=== PATIENT | female | born 1955 | race Caucasian/White ===

== ENCOUNTER 2019-05-18 12:49 | Inpatient (IN) ==
[2019-05-18] MEDS ORDERED: NS 1,000 ML IV ONE ×2 (13:46→15:19)
[2019-05-18] MEDS ORDERED: PHENERGAN IV ONE (13:47)
[2019-05-18] MEDS ORDERED: SODIUM CHLORIDE 0.9% INJ ONE (13:47)
[2019-05-18] MEDS ORDERED: DEMEROL IV ONE ×2 (14:06→15:16)
[2019-05-18 14:09] LABS: BASO# 0.02 X1000 (0.0-0.2); BASO% 0.1 % (0.0-0.8); EOS# 0.06 X1000 (0.0-0.7); EOS% 0.4 % (0.0-10.0); HEMATOCRIT 42.5 % (37.0-47.0); HEMOGLOBIN 14.8 g/dL (12.0-16.0); IMM GRAN# 0.04 X1000 (0.0-0.04); IMM GRAN% 0.3 % (0.0-0.5); LYMPH# 2.05 X1000 (1.2-3.4); LYMPH% 15.2 % (20.5-51.1); MCHC 34.8 g/dL (33-37); MCV 88.9 FL (81-99); MONO% 6.7 % (1.7-9.3); MPV 8.4 FL (7.4-10.4); NEUT# 10.43 X1000 (1.4-6.5); NEUT% 77.3 % (42.2-75.2); PLT 280 X1000 (130-400); RBC 4.78 XMIL (4.2-5.4); RDW 12.5 % (11.5-14.5)
[2019-05-18 14:51] LABS: AGAP 12; ALBUMIN 3.7 g/dL (3.5-5.0); ALKALINE PHOSPHATASE 94 U/L (32-104); BUN 8 mg/dL (8-22); CALCIUM 7.8 mg/dL (8.8-10.2); CHLORIDE 98 mmol/L (98-107); COSMO 269; CREATININE 0.8 mg/dL (0.5-0.9); ESTIMATED GFR > 60; GLUCOSE 115 mg/dL (70-104); GOT 32 U/L (10-30); GPT 29 U/L (10-36); LIPASE 487 U/L (13-60); POTASSIUM 3.5 mmol/L (3.5-5.1); SODIUM 135 mmol/L (136-145); TCO2 25 mmol/L (25-35); TOTAL PROTEIN 5.8 g/dL (6.3-8.3)
--- NOTE | 2019-05-18 15:09 | Diag Imaging Result Doc PS360 ---
EXAM: CHEST-2 VIEWS INDICATION: pain TECHNIQUE: 2 views COMPARISON: 03/07/2018 FINDINGS: The lungs are grossly clear. There is no discrete pleural fluid collection or pneumothorax. The cardiomediastinal silhouette and central vasculature are grossly unremarkable. IMPRESSION: No evidence of acute pathology by plain radiograph. Electronically signed by Sukhwinder Roland 05/18/2019 3:07 PM
--- NOTE | 2019-05-18 15:11 | Diag Imaging Result Doc PS360 ---
EXAM: ABDOMEN FLAT/UPRIGHT INDICATION: pain TECHNIQUE: 3 views COMPARISON: 11/08/2010 FINDINGS: There are unremarkable bowel gas and stool patterns. There is no obstructive bowel pattern. There is no evidence of large volume free abdominal gas. There is no evidence of organomegaly. IMPRESSION: No evidence of acute pathology by plain radiograph. Electronically signed by Sukhwinder Roland 05/18/2019 3:08 PM
[2019-05-18] MEDS ORDERED: ATIVAN IV ONE (15:30)
--- NOTE | 2019-05-18 16:28 | Diag Imaging Result Doc PS360 ---
EXAM: CT ABD/PELVIS W/IV CONT ONLY INDICATION: pain TECHNIQUE: This exam was performed using automated exposure control, adjustment of mA or kV according to patient size, and/or use of iterative reconstruction technique. COMPARISON: None. FINDINGS: There is a fair amount of peripancreatic fluid suggesting acute pancreatitis. The pancreas enhances normally. There is no evidence of pancreatic necrosis. The gallbladder is distended but there is no pericholecystic inflammatory change or wall thickening. There is no evidence of significant biliary dilatation. The liver, spleen, adrenal glands, kidneys, and urinary bladder are unremarkable. The reproductive tract is unremarkable as imaged. There is no evidence of appendicitis. No focal bowel wall thickening is appreciated. The remainder of the GI tract is grossly unremarkable. There is no evidence of acute osseous abnormality. IMPRESSION: Fair amount of peripancreatic fluid suggesting acute pancreatitis. Please correlate with laboratory studies. Electronically signed by Sukhwinder Roland 05/18/2019 4:25 PM
[2019-05-18 17:02] LABS: BILIRUBIN URINE NEGATIVE (NEGATIVE); BLOOD URINE NEGATIVE (NEGATIVE); GLUCOSE URINE NEGATIVE (NEGATIVE); KETONE URINE NEGATIVE (NEGATIVE); LEUKOCYTES URINE TRACE (NEGATIVE); NITRITE URINE NEGATIVE (NEGATIVE); PROTEIN URINE NEGATIVE (NEGATIVE); SP GRAVITY URINE 1.005; UROBILINOGEN URINE NORMAL
[2019-05-18 17:03] LABS: CLARITY CLEAR (CLEAR); COLOR YELLOW; UR AMPHETAMINES QUAL NONE DETECTED (NONE DETECT); UR BARBITUATES QUAL NONE DETECTED (NONE DETECT); UR BENZODIAZEPIN QUAL NONE DETECTED (NONE DETECT); UR CANNABINOIDS QUAL NONE DETECTED (NONE DETECT); UR COCAINE QUAL NONE DETECTED (NONE DETECT); UR METHADONE QUAL NONE DETECTED (NONE DETECT); UR METHAMPHETAMINE QUAL NONE DETECTED (NONE DETECT); UR OPIATES QUAL PRESUMPTIVE POSITIVE (NONE DETECT); UR OXYCODONE QUAL NONE DETECTED (NONE DETECT); UR PCP QUAL NONE DETECTED (NONE DETECT); UR PROPOXYPHENE QUAL NONE DETECTED (NONE DETECT); UR TCA QUAL NONE DETECTED (NONE DETECT)
[2019-05-18 17:04] LABS: URINE BACTERIA 1+ /HFP; URINE CAST NONE SEEN /LPF; URINE CRYSTAL NONE SEEN /HPF; URINE EPITHELIAL CELLS <10 /HPF (<10); URINE SOURCE CLEAN CATCH; URINE WBC <10 /HPF (<10); URINE YEAST NONE SEEN /HPF
--- NOTE | 2019-05-18 18:12 | Diag Imaging Result Doc PS360 ---
EXAM: US GB < RUQ (LIMITED) INDICATION: pancreatitis COMPARISON: None. FINDINGS: The gallbladder appears normal with no stones, wall thickening, or pericholecystic fluid. The common bile duct is normal in diameter. Sonographic Serrato's sign was reported to be positive by the needle punch machine operator helper. The liver is grossly unremarkable. Portal venous flow is hepatopetal. The pancreas is largely obscured. The pancreatic head is grossly unremarkable. Note that most of the fluid seen on the previous CT was around the tail the pancreas. The aorta is largely obscured. The IVC is unremarkable. The right kidney is grossly unremarkable. IMPRESSION: 1.Grossly normal gallbladder with no gallstones identified and no evidence of biliary dilatation. However, the needle punch machine operator helper reported a positive sonographic Serrato sign. 2.The pancreas is largely obscured. 3.Unremarkable right upper quadrant ultrasound, otherwise. Electronically signed by Sukhwinder Roland 05/18/2019 6:09 PM
--- NOTE | 2019-05-18 18:18 | HISTORY AND PHYSICAL ---
PRIMARY CARE PHYSICIAN: Dr. Jhonny Harvey. CHIEF COMPLAINT: Left lower quadrant abdominal pain with nausea, vomiting that began today. HISTORY OF PRESENTING ILLNESS: This is a 63-year-old female who presents to [facility] ER with complaints of nausea, vomiting, left lower quadrant abdominal pain. States the symptoms began this morning. She has a history of ETOH abuse. States she had been quit for about 9 months after she went to the [facility] back in December 2017 but recently about a month ago began drinking again and was very noncommittal to how much she drinks a day. She started with 2 glasses of wine then she said she also likes carmel margaritas and then she said she drinks a beer a day also but would never commit exactly how much she drinks in a day but her workup showed a white blood cell count of 13.50, an amylase of 155, lipase of 487. Her CT of the abdomen and pelvis showed a fair amount of peripancreatic fluid suggesting an acute pancreatitis so she will be admitted for further evaluation and treatment. PAST MEDICAL HISTORY: Hypertension, COPD, hypothyroidism, melanoma, bipolar, hyperlipidemia, depression and ETOH abuse. PAST SURGICAL HISTORY: Of multiple ankle surgeries. FAMILY HISTORY: Reviewed and noncontributory. SOCIAL HISTORY: She currently lives with family. Smokes a half a pack of cigarettes a day, again was noncommittal on exactly how much she drinks alcohol but said she had been sober for about 9 months, has had a history of ETOH abuse, was in the [facility] in December 2017 but admitted to drinking 2 glasses of wine a day, a carmel Genevieve and 1 beer and denied any illicit drug use. ALLERGIES: Codeine, sulfa and morphine. HOME MEDICATIONS: She takes Prozac 40 mg p.o. daily we will hold at this time. LABORATORY DATA: Showed a white blood cell count of 13.50, hemoglobin 14.8, hematocrit 42.5, platelets of 280,000. Sodium 135, potassium 3.5, chloride 98, CO2 25, BUN of 8, creatinine 0.8, glucose 115, amylase 155, lipase 487. Urine culture pending and a right upper quadrant ultrasound is pending. REVIEW OF SYSTEMS: She denied any fever, chills, blurred vision, dizziness, chest pain, coughing, shortness of breath. She has left lower quadrant abdominal pain, nausea, vomiting. Has had a few episodes of diarrhea. Denied any constipation or burning or hurting with urination. PHYSICAL EXAMINATION: On arrival she had a temperature of 98.1 degrees, pulse 91, respirations 20, blood pressure 192/107, saturating 100% on room air. Currently blood pressure is down to 177/95. GENERAL: This is a 63-year-old female who is lying in the bed and answers questions appropriately. HEENT: Normocephalic, atraumatic. Normal ENT inspection. Oropharynx and nares are clear. Pupils are equal, round and reactive to light, accommodation. Extraocular movements are intact. NECK: Normal inspection, normal range of motion. LUNGS: Clear to auscultation bilaterally with equal lung expansion and chest wall movement. HEART: Regular rate and rhythm. No murmurs, rubs, or gallops. ABDOMEN: Soft. There was some tenderness to palpation to the left lower quadrant. Bowel sounds are present x4 quadrants. MUSCULOSKELETAL: Has 5/5 strength x4 extremities. NEUROLOGICAL: The cranial nerves 2-12 appear grossly intact. ASSESSMENT: 1. An acute pancreatitis. 2. Nausea, vomiting, diarrhea. 3. Ethanol abuse. 4. Tobacco abuse. 5. Hypertension. PLAN: She will be admitted to the medical unit, held NPO, again we are obtaining a right upper quadrant ultrasound. She has Ativan 1 mg IV q.4 hours p.r.n., normal saline at 125 mL an hour, Zofran 4 mg IV q.4 hours p.r.n. Apply SCDs for DVT prophylaxis. We will recheck a CBC, CMP, lipase and amylase in the a.m. and we will give Demerol 25 mg IV q.4 hours p.r.n. Further orders after seen by attending. Dictated by DALILA Shelton for Estiven Shaffer MD cc: MD Estiven Haque MD
[2019-05-18 18:27] LABS: INR 0.98; PROTIME 13.5 Seconds (11.0-16.0)
[2019-05-18 18:28] LABS: PTT 27.8 Seconds (22.3-41.8)
[2019-05-18] MEDS ORDERED: PNEUMOVAX 23 IM ONE (19:32)
[2019-05-18] MEDS: ATIVAN IV PRN ×2 (19:49→23:32)
[2019-05-18] MEDS: NS 1,000 ML IV SCH (19:49)
[2019-05-18] MEDS: DEMEROL IV PRN ×2 (19:49→23:32)
[2019-05-18] MEDS: ZOFRAN IV PRN ×2 (19:50→23:31)
--- NOTE | 2019-05-18 20:08 | HISTORY AND PHYSICAL ---
ADDENDUM: HISTORY OF PRESENT ILLNESS: This is a 63-year-old female with history of recent alcohol abuse, who comes in with chest pain, abdominal pain, nausea, vomiting. She was found to have pancreatitis. PHYSICAL EXAMINATION: GENERAL: She looks well. A little bit of pain. There is no necrosis. Gallbladder is distended. No stones. ABDOMEN: She has pain, but no rebound or guarding. LABORATORY DATA: Her lipase was mildly elevated. ASSESSMENT/PLAN: She was admitted for acute pancreatitis. She will be made NPO. Continue fluids and all of those kinds of things. TIME SPENT: This is a [id number] encounter note with Bria Betts. cc: Estiven Shaffer MD
[2019-05-19] MEDS: NS 1,000 ML IV SCH (04:35)
[2019-05-19] MEDS: DEMEROL IV PRN ×2 (06:50→12:35)
[2019-05-19 06:54] LABS: BASO# 0.01 X1000 (0.0-0.2); BASO% 0.1 % (0.0-0.8); EOS# 0.04 X1000 (0.0-0.7); EOS% 0.3 % (0.0-10.0); HEMATOCRIT 38.9 % (37.0-47.0); HEMOGLOBIN 13.1 g/dL (12.0-16.0); IMM GRAN# 0.01 X1000 (0.0-0.04); IMM GRAN% 0.1 % (0.0-0.5); LYMPH# 1.35 X1000 (1.2-3.4); LYMPH% 11.8 % (20.5-51.1); MCH 30.1 PG (27-31); MCHC 33.7 g/dL (33-37); MCV 89.4 FL (81-99); MONO# 0.84 X1000 (0.11-0.59); MONO% 7.3 % (1.7-9.3); MPV 8.6 FL (7.4-10.4); NEUT% 80.4 % (42.2-75.2); PLT 244 X1000 (130-400); RBC 4.35 XMIL (4.2-5.4); RDW 12.5 % (11.5-14.5); WBC 11.45 X1000 (4.8-10.8)
[2019-05-19 07:36] LABS: AGAP 9; ALKALINE PHOSPHATASE 95 U/L (32-104); AMYLASE 175 U/L (20-200); BUN 3 mg/dL (8-22); CALCIUM 7.5 mg/dL (8.8-10.2); CHLORIDE 102 mmol/L (98-107); COSMO 271; CREATININE 0.6 mg/dL (0.5-0.9); ESTIMATED GFR > 60; GLUCOSE 116 mg/dL (70-104); GOT 27 U/L (10-30); GPT 20 U/L (10-36); LIPASE 245 U/L (13-60); POTASSIUM 3.5 mmol/L (3.5-5.1); SODIUM 137 mmol/L (136-145); TCO2 26 mmol/L (25-35); TOTAL PROTEIN 4.9 g/dL (6.3-8.3)
[2019-05-19] MEDS: POTASSIUM CHLORIDE 20 MEQ, MAGNESIUM SULFATE 2 GM, THIAMINE 100 MG, FOLIC ACID 1 MG, M.... IV SCH ×6 (09:00)
[2019-05-19] MEDS: TYLENOL PO PRN (09:17)
[2019-05-19] MEDS: NICODERM PATCH TD SCH (13:09)
[2019-05-19] MEDS ORDERED: MORPHINE IV PRN (15:09)
[2019-05-19] MEDS ORDERED: HALDOL IV PRN (15:27)
--- NOTE | 2019-05-19 15:28 | PROGRESS NOTE ---
DATE: 05/19/2019 SUBJECTIVE: Per nursing staff, she is very confused, although she seems like she is somewhat with it. I was concerned about mental status, but she seemed to be taking some of the information and, but I am not entirely sure that she is not hallucinating. She denies hallucinating, but nurse reports that she is wandering around without her clothes on and things of that nature, so I do think she probably is at risk for alcohol withdrawal, even though she specifically says that is not possible. OBJECTIVE: Vital Signs: Blood pressure is 166/95, heart rate of 79, respiratory rate of 20, temperature 98.3 degrees, 96% on room air. Cardiovascular: Regular rate and rhythm. Pulmonary: Bilateral breath sounds clear to auscultation. GI: Soft, nontender. Neurologic: She did not seem particularly agitated, although she was difficult to redirect at times. Not clear if she knew exactly why she was here, but again, she denied any hallucinations or anything of that nature. PROBLEM LIST: 1. Acute pancreatitis, most likely related to alcohol abuse. Her biliary workup has been negative. 2. Encephalopathy, most likely alcohol induced and withdrawal. We will initiate Librium and follow. I am going to stop her Demerol and switch her to morphine. 3. Tobacco abuse. Advised on cessation. 4. We will continue fluids. I think preferentially will use LR and monitor. DISPOSITION: She is improving, so I think we can probably change her to a clear diet and see how she does. cc: Estiven Shaffer MD
[2019-05-19 15:40] LABS: AGAP 6; ALBUMIN 3.2 g/dL (3.5-5.0); ALKALINE PHOSPHATASE 99 U/L (32-104); BUN 3 mg/dL (8-22); CHLORIDE 104 mmol/L (98-107); COSMO 275; CREATININE 0.7 mg/dL (0.5-0.9); ESTIMATED GFR > 60; GLUCOSE 113 mg/dL (70-104); GOT 23 U/L (10-30); GPT 19 U/L (10-36); POTASSIUM 3.8 mmol/L (3.5-5.1); SODIUM 139 mmol/L (136-145); TCO2 29 mmol/L (25-35); TOTAL PROTEIN 5.3 g/dL (6.3-8.3)
[2019-05-19] MEDS: LIBRIUM PO SCH (17:02)
[2019-05-19] MEDS: DILAUDID IV PRN ×2 (17:38→21:24)
[2019-05-19] MEDS: LR 1,000 ML IV SCH (18:14)
[2019-05-20] MEDS: DILAUDID IV PRN ×5 (01:42→20:42)
[2019-05-20] MEDS: LR 1,000 ML IV SCH ×2 (05:55→18:14)
[2019-05-20 07:01] LABS: HEMATOCRIT 37.2 % (37.0-47.0); HEMOGLOBIN 12.1 g/dL (12.0-16.0); MCH 29.7 PG (27-31); MCHC 32.5 g/dL (33-37); MCV 91.4 FL (81-99); MPV 8.7 FL (7.4-10.4); RBC 4.07 XMIL (4.2-5.4); RDW 12.6 % (11.5-14.5); WBC 8.22 X1000 (4.8-10.8)
[2019-05-20] MEDS: POTASSIUM CHLORIDE 20 MEQ, MAGNESIUM SULFATE 2 GM, THIAMINE 100 MG, FOLIC ACID 1 MG, M.... IV SCH ×6 (08:07)
[2019-05-20] MEDS: LIBRIUM PO SCH ×3 (08:09→20:41)
[2019-05-20] MEDS: NICODERM PATCH TD SCH (08:09)
[2019-05-20] MEDS: TYLENOL PO PRN (14:28)
[2019-05-20] MEDS ORDERED: LEVAQUIN 250 MG/D5W 250 MG/50 ML IVPB IV SCH (16:30)
[2019-05-20] MEDS: PROZAC PO SCH (18:15)
--- NOTE | 2019-05-20 20:22 | PROGRESS NOTE ---
SUBJECTIVE: She is better. Her mental status is improved. She is hungry. OBJECTIVE: Vital signs: Blood pressure 115/71, heart rate 82, respiratory rate 18, temperature 98.1 degrees, 97% on room air. Cardiovascular: Regular rate and rhythm. Pulmonary: Bilateral breath sounds clear to auscultation. Gastrointestinal: Soft, nontender, nondistended. Bowel sounds were positive. LABORATORY DATA: Her lipase is down to 95. Triglycerides were normal. CBC looked okay. PROBLEM LIST: 1. Acute pancreatitis, likely alcohol related. Workup has been otherwise negative. She is improving. We will advance her diet and follow. 2. Encephalopathy is also resolving and also is likely associated with alcohol withdrawal. She is on Librium low-dose. 3. Tobacco abuse. Advised on cessation. DISPOSITION: I think if she is tolerating her diet tomorrow and stable, anticipate discharge tomorrow. cc: Estiven Shaffer MD
[2019-05-20] MEDS: LIORESAL PO SCH (20:41)
[2019-05-20] MEDS: NEURONTIN PO SCH (20:42)
[2019-05-20] MEDS ORDERED: REQUIP PO SCH (21:00)
[2019-05-20] MEDS ORDERED: FLEXERIL PO SCH (21:00)
[2019-05-20] MEDS ORDERED: CRESTOR PO SCH (21:00)
[2019-05-21] MEDS: LR 1,000 ML IV SCH ×2 (03:46→10:47)
[2019-05-21] MEDS: POTASSIUM CHLORIDE 20 MEQ, MAGNESIUM SULFATE 2 GM, THIAMINE 100 MG, FOLIC ACID 1 MG, M.... IV SCH ×6 (03:46)
[2019-05-21 05:42] VITALS: BP 156/96
[2019-05-21] MEDS ORDERED: PRILOSEC PO SCH (07:00)
[2019-05-21 07:02] LABS: BASO# 0.02 X1000 (0.0-0.2); BASO% 0.3 % (0.0-0.8); EOS% 3.1 % (0.0-10.0); HEMATOCRIT 35.4 % (37.0-47.0); HEMOGLOBIN 11.3 g/dL (12.0-16.0); IMM GRAN# 0.01 X1000 (0.0-0.04); IMM GRAN% 0.2 % (0.0-0.5); LYMPH# 1.43 X1000 (1.2-3.4); LYMPH% 22.4 % (20.5-51.1); MCHC 31.9 g/dL (33-37); MCV 93.9 FL (81-99); MONO# 0.58 X1000 (0.11-0.59); MONO% 9.1 % (1.7-9.3); MPV 8.2 FL (7.4-10.4); NEUT# 4.14 X1000 (1.4-6.5); NEUT% 64.9 % (42.2-75.2); PLT 250 X1000 (130-400); RBC 3.77 XMIL (4.2-5.4); RDW 12.9 % (11.5-14.5); WBC 6.38 X1000 (4.8-10.8)
[2019-05-21 07:23] LABS: AGAP 5; BUN 4 mg/dL (8-22); CALCIUM 8.1 mg/dL (8.8-10.2); CHLORIDE 104 mmol/L (98-107); COSMO 273; CREATININE 0.6 mg/dL (0.5-0.9); ESTIMATED GFR > 60; GLUCOSE 98 mg/dL (70-104); LIPASE 90 U/L (13-60); SODIUM 138 mmol/L (136-145); TCO2 29 mmol/L (25-35)
[2019-05-21] MEDS: PROZAC PO SCH (08:51)
[2019-05-21] MEDS: NEURONTIN PO SCH (08:51)
[2019-05-21] MEDS: NICODERM PATCH TD SCH (08:52)
[2019-05-21] MEDS: LIBRIUM PO SCH (08:52)
[2019-05-21] MEDS: LIORESAL PO SCH (08:52)
[2019-05-21] MEDS ORDERED: LEVAQUIN PO SCH (11:00)
--- NOTE | 2019-05-22 10:00 | DISCHARGE SUMMARY ---
ADMISSION DATE: 05/18/2019 DISCHARGE DATE: 05/21/2019 DIAGNOSES: 1. Acute pancreatitis, resolved. 2. Nausea, vomiting, diarrhea, resolved. 3. Ethanol abuse. 4. Tobacco abuse. 5. Hypertension. 6. Encephalopathy, resolved. DIAGNOSTICS: 1. 05/18/2019 chest x-ray revealed no evidence of acute pathology. 2. CT of the abdomen and pelvis revealed a fair amount of peripancreatic fluid suggesting acute pancreatitis. 3. Abdominal ultrasound revealed grossly normal gallbladder with no gallstones and no evidence of biliary dilatation. However, the informatics educator reported a positive sonographic Serrato's sign. Pancreas is largely obscured. Unremarkable right upper quadrant ultrasound. MICROBIOLOGY: 1. Blood cultures x2 revealed no growth after 48 hours. 2. Urine culture revealed E. coli. HOSPITAL COURSE: Ms. Eric presented to the emergency room with left lower quadrant abdominal pain, nausea, vomiting. She was found to have acute pancreatitis with an initial lipase of 487. She was initially NPO and diet has been advanced. She was able to tolerate a healthy heart diet without any symptoms. We did trend lipase daily. She is down to 90. She has no further abdominal tenderness or pain. Encephalopathy has resolved. She is back to her normal mental status per family members. It was discussed alcohol cessation as well as tobacco cessation with the patient per Dr. Dc as well as myself. DISCHARGE VITAL SIGNS: Blood pressure is 156/90 with a heart rate of 75, respirations 20, temperature 97.7 degrees oral with room air saturations 95%. DISCHARGE PHYSICAL EXAMINATION: Cardiovascular: Regular rate and rhythm. S1 and S2 appreciated. Pulmonary: Breath sounds are clear. No increased work of breathing noted. Gastrointestinal: Abdomen is soft, nontender, nondistended. Bowel sounds in all 4 quadrants. Neurologic: She is alert and oriented x3. Skin: Was warm and dry. DISCHARGE MEDICATIONS: 1. Rosuvastatin 20 mg p.o. at bedtime. 2. Requip 1 mg p.o. at bedtime. 3. Prazosin 10 mg p.o. at bedtime. 4. Omeprazole 40 mg p.o. daily. 5. Levaquin 500 p.o. daily x5 days. 6. Gabapentin 300 mg p.o. t.i.d. 7. Fluoxetine 40 mg p.o. daily. 8. Flexeril 10 mg p.o. at bedtime #6 given. 9. Librium 25 mg p.o. t.i.d. #8 capsules given. 10. Tessalon Perles 100 mg p.o. b.i.d. 11. Baclofen 10 mg p.o. t.i.d. FOLLOW-UP: Dr. Jhonny Harvey. She is to call to schedule an appointment in 7 to 10 days. She needs to call to be seen sooner or return to the ER for any syncope, dizziness, chest pain, palpitations, nausea, vomiting, diarrhea, constipation, abdominal pain, any black or bloody vomitus or stools, temperature greater than 101, any hematuria, dysuria, frequency, urgency or for any questions or concerns that she may have. Shes being discharged home in stable condition with family members. TIME SPENT: This is a greater than 30 minute discharge. Dictated by DALILA Hawkins for oYbani Gibbs MD cc: DALILA Hawkins MD
--- NOTE | 2019-05-22 13:52 | DISCHARGE SUMMARY ---
ADMISSION DATE: 05/18/2019 DISCHARGE DATE: 05/21/2019 ADDENDUM: Patient seen and examined by myself. Full note dictated and discussed with nurse practitioner. Patient presented to the hospital with pancreatitis that was alcohol-related. She thankfully, on discharge, is awake, alert. She is in no distress, feeling much better. Her abdominal pain is resolved. States the only reason she is not eating any more is that she does not like the [facility] food. She does have an E. coli urinary tract infection, which is sensitive to Levaquin. Discussed with her that she needs to stop smoking and stop drinking. Will follow up with her primary care in 1 to 2 weeks for re-evaluation. Will discharge home on Levaquin. TIME SPENT: Greater than 30 minutes were spent in total. cc: Yobani Gibbs MD
== END 2019-05-21 11:06 | disposition home or self-care (01) | DRG 439 ==
LOC: P.ED 12:49 → SUATTDRO 17:24 → P.MEDSURG 17:24
PROVIDERS: ATTEND Family Medicine

== ENCOUNTER 2019-10-24 02:32 | Inpatient (IN) ==
[2019-10-24] MEDS ORDERED: PHENERGAN IV ONE (02:49)
[2019-10-24] MEDS ORDERED: DEMEROL IV ONE (02:50)
[2019-10-24] MEDS ORDERED: SODIUM CHLORIDE 0.9% INJ ONE (02:50)
--- NOTE | 2019-10-24 03:05 | PROVIDER DOCUMENTATION ---
HPI-Abdominal Pain/GI Problem - General Chief Complaint: Abdominal Pain Stated Complaint: ABD PAIN Time Seen by Provider: 10/24/19 02:49 Source: patient, family Allergies/Adverse Reactions: Patient Allergies Allergy/AdvReac Type Severity Reaction Status Date / Time codeine [Codeine] Allergy Intermediate NAUSEA/VOMI Verified 10/24/19 03:05 TING sulfamethoxazole Allergy Intermediate HIVES Verified 10/24/19 03:05 [From Bactrim] trimethoprim [From Bactrim] Allergy Intermediate HIVES Verified 10/24/19 03:05 morphine AdvReac Intermediate Unknown Verified 10/24/19 03:05 Home Medications: Home Medication List Medication Instructions Recorded Confirmed Last Taken Type Benzonatate 100 mg PO BID PRN 05/18/19 10/24/19 Unknown History Celecoxib 200 mg PO DAILY 05/18/19 10/24/19 Unknown History Ropinirole HCl [Requip] 1 mg PO QHS 05/18/19 05/19/19 Unknown History Rosuvastatin Calcium 20 mg PO QHS 05/18/19 10/24/19 Unknown History Chlordiazepoxide [Librium] 25 mg PO TID PRN #8 cap 05/21/19 Unknown Rx B-Complex with Vitamin C [Super B 1 tab PO DAILY 10/24/19 10/24/19 Unknown History Complex-Vitamin C] Baclofen 1 tab PO TID 10/24/19 10/24/19 Unknown History Biotin 1 tab PO DAILY 10/24/19 10/24/19 Unknown History Cholecalciferol (Vitamin D3) 1 cap PO DAILY 10/24/19 10/24/19 Unknown History [Vitamin D3] Fluoxetine HCl 1 tab PO DAILY 10/24/19 10/24/19 Unknown History Fluticasone/Umeclidin/Vilanter 1 puff INH DAILY 10/24/19 10/24/19 Unknown History [Trelegy Ellipta 100-62.5-25] Gabapentin 1 cap PO TID 10/24/19 10/24/19 Unknown History Guaifen/Dextromethorphan/PE 1 tab PO BID 10/24/19 10/24/19 Unknown History [Deconex Dmx 17.5-400-10 mg Tab] Hydroxyzine HCl 2 tab PO DAILY 10/24/19 10/24/19 Unknown History Levothyroxine Sodium 1 cap PO QAM 10/24/19 10/24/19 Unknown History Melatonin 1 tab PO QHS 10/24/19 10/24/19 Unknown History Mv-Mn/Folic AC/Calcium/Vit K1 1 tab PO DAILY 10/24/19 10/24/19 Unknown History [Women's 50 Plus Daily Formula] Omeprazole 1 cap PO QAM 10/24/19 10/24/19 Unknown History Prazosin [Minipress] 2 cap PO QHS 10/24/19 10/24/19 Unknown History Tramadol HCl 1 tab PO Q6HR PRN 10/24/19 10/24/19 Unknown History Trazodone [Desyrel] 1 tab PO QHS 10/24/19 10/24/19 Unknown History - History of Present Illness-ABD Nature of Presenting Problems: screaming with pain help me had pain noon then woke up vomiting then screaming gives plasma 3 week for etoh Abdominal Pain Onset Location: reports: epigastric, generalized abdomen Pain Radiation: reports: no radiation Quality of Pain: reports: cramping Severity in ED: reports: severe Onset/Duration: reports: 24 hours ago Timing: reports: still present Activities at Onset: reports: none Exposure to sick contacts?: No Modifying Factors: improves with: vomiting. worse with: palpation Associated Symptoms: reports: diarrhea, loss of appetite, malaise, nausea, vom iting Last BM: this morning Dark Stools Present?: reports: none noticed Rectal Bleeding: reports: none Rectal Pain: reports: none Bruising or Bleeding Gums?: No Similar Symptoms Previously?: Yes Recently seen or treated by another doctor?: No Review of Systems - Adult - REVIEW OF SYSTEMS - ADULT Constitutional: reports: no symptoms reported Eyes: reports: no symptoms reported Ears, Nose, Mouth & Throat: reports: no symptoms reported Cardiovascular: reports: no symptoms reported Respiratory: reports: no symptoms reported Gastrointestinal: reports: abdominal pain, diarrhea, nausea, vomiting Genitourinary: reports: no symptoms reported Musculoskeletal: reports: no symptoms reported Integumentary: reports: no symptoms reported Neurological: reports: no symptoms reported Psychiatric: reports: anxiety, emotional problems Endocrine: reports: no symptoms reported Hematologic/Lymphatic: reports: no symptoms reported Allergic/Immunologic: reports: no symptoms reported Past History - Adult - PAST MEDICAL HISTORY-ADULT Review of Records: reports: Nursing Assessment Review, Medications Reviewed, Social history reviewed & non-contributory. Cardiovascular: reports: HTN Respiratory: reports: COPD Endocrine/Immune: reports: thyroid disorder Other Conditions: reports: other cancer (melanoma) - PRIOR SURGERIES/PROCEDURES Surgical/Procedure History: reports: reviewed, not pertinent - IMMUNIZATION STATUS Childhood Immunizations: See Nurse Assessment Flu Vaccine: See Nurse Assessment - FAMILY HISTORY Family History: reviewed, not pertinent Physical Exam-General - PHYSICAL EXAM-ADULT Initial Vital Signs Reviewed: Yes - CONSTITUTIONAL General Appearance: severe distress, anxious - EYES Eyes: PERRL/EOMI - HEAD, EARS, NOSE, MOUTH & THROAT HENMT: normocephalic/atraumatic - NECK Neck: non-tender, supple - RESPIRATORY Respiratory: lungs clear, normal breath sounds - CARDIOVASCULAR Cardiovascular: regular rate, rhythm - GASTROINTESTINAL (ABDOMEN) Abdominal Exam: soft, no organomegaly, no pulsatile mass - LYMPHATIC Lymphatic: no adenopathy - MUSCULOSKELETAL Back Exam: normal inspection Extremity: normal range of motion Peripheral Pulses: dorsalis-pedis (R): 1+, dorsalis-pedis (L): 1+ - SKIN Integumentary: normal color, normal turgor - NEUROLOGIC Neurologic: grossly normal - PSYCHIATRIC Psych/Mental Status: oriented x 3 Progress - PLAN OF CARE/RESULTS Progress/Plan/Lab Results: Vital Signs - 8 hr 10/24/19 02:43 Temperature 97.7 F Pulse Rate 85 Respiratory Rate 20 Blood Pressure 147/79 O2 Sat by Pulse Oximetry 99 Orders Category Date Time Status CHEST-PORTABLE [RAD] Stat Exams 10/24/19 02:53 Ordered ALCOHOL BLOOD Stat Lab 10/24/19 02:51 Uncollected AMYLASE [CHEM] Stat Lab 10/24/19 02:51 Ordered CBC WITH ELECTRONIC DIFF [HEME] Stat Lab 10/24/19 02:51 Ordered COMPREHENSIVE METABOLIC PANEL [CHEM] Stat Lab 10/24/19 02:51 Ordered LIPASE [CHEM] Stat Lab 10/24/19 02:51 Uncollected TROPONIN T HIGH SENSITIVITY Stat Lab 10/24/19 02:51 Uncollected URINALYSIS W/POSS RFLX CULT [URINALYSIS] Stat Lab 10/24/19 02:51 Uncollected URINE DRUG SCREEN PL Stat Lab 10/24/19 02:51 Uncollected Meperidine [Demerol] Med 10/24/19 02:50 Once 50 mg IV NOW ONE Promethazine [Phenergan] Med 10/24/19 02:49 Discontinued 25 mg IV NOW ONE Sodium Chloride 0.9% Med 10/24/19 02:50 Once 10 ml INJ NOW ONE Result Diagrams: 10/24/19 02:48 10/24/19 02:48 - EKG 1 Time of EKG reading by physician:: 04:31 EKG Read and Signed by:: Juan Sanchez EKG Interpretation (*Must complete 3 of following elements*): Normal Rate: 74 Rhythm: sinus Zebulon: normal QRS: normal TX Interval: normal ST Wave: normal - XRAY 1 XRAY Study: Chest Impression: Normal - CONSULTS/PCP/HOSPITALIST Notification #1 *Consult/PCP/Hospitalist*: DR QUIROZ Time Discussed: 08:09 Consult Disposition: Admit Departure - Departure Date of Disposition Decision: 10/24/19 Time of Disposition Decision: 08:08 DIAGNOSIS: Pancreatitis, EtOH dependence, Bipolar 1 disorder with moderate rhianna Disposition: ADMITTED INPATIENT 09 Certified Medical Emergency: Emergent Condition: Stable Referrals and Follow-Ups: Jhonny Harvey MD [Primary Care Provider] - Discharge Education: Steps to Quit Smoking, [id number] - Critical Care Note This patient required my direct & personal management of CC.: Yes Total Time (mins): 30 Critical Care Statement: This patient required my direct personal management to treat or rule out processes, the absence of which, could potentiallly result in sudden, clinically significant life or limb threatening deterioration. Attestation - Physician/ TAMIKO Attestation The physician spent face to face time with patient:: Yes Advanced Practice Provider documentation review:: Supervising physician onsite and consulted in the evaluation and care of this patient. The physician did have a face to face encounter with the patient.
[2019-10-24 03:09] LABS: BASO# 0.01 X1000 (0.0-0.2); BASO% 0.1 % (0.0-0.8); EOS# 0.08 X1000 (0.0-0.7); EOS% 0.8 % (0.0-10.0); HEMATOCRIT 44.3 % (37.0-47.0); HEMOGLOBIN 15.1 g/dL (12.0-16.0); IMM GRAN# 0.02 X1000 (0.0-0.04); IMM GRAN% 0.2 % (0.0-0.5); LYMPH# 1.58 X1000 (1.2-3.4); LYMPH% 16.6 % (20.5-51.1); MCH 31.9 PG (27-31); MCHC 34.1 g/dL (33-37); MCV 93.7 FL (81-99); MONO# 0.56 X1000 (0.11-0.59); MONO% 5.9 % (1.7-9.3); MPV 9.1 FL (7.4-10.4); NEUT# 7.26 X1000 (1.4-6.5); NEUT% 76.4 % (42.2-75.2); PLT 279 X1000 (130-400); RBC 4.73 XMIL (4.2-5.4); RDW 11.8 % (11.5-14.5); WBC 9.51 X1000 (4.8-10.8)
[2019-10-24 03:12] LABS: URINE SOURCE CATH
[2019-10-24 03:18] LABS: BILIRUBIN URINE NEGATIVE (NEGATIVE); BLOOD URINE NEGATIVE (NEGATIVE); COLOR YELLOW; GLUCOSE URINE NEGATIVE (NEGATIVE); KETONE URINE 20 mg/dL (NEGATIVE); LEUKOCYTES URINE NEGATIVE (NEGATIVE); NITRITE URINE NEGATIVE (NEGATIVE); PROTEIN URINE TRACE mg/dL (NEGATIVE); SP GRAVITY URINE 1.018; TURBIDITY URINE CLEAR (CLEAR); UROBILINOGEN URINE NORMAL (NORMAL)
[2019-10-24 03:20] LABS: UR EPITHELIAL CELLS <10 /HPF (<10); URINE BACTERIA NEGATIVE /HPF; URINE RBC <10 /HPF (<10); URINE WBC <10 /HPF (<10)
[2019-10-24 03:25] LABS: UR AMPHETAMINES QUAL NONE DETECTED (NONE DETECT); UR BARBITUATES QUAL NONE DETECTED (NONE DETECT); UR BENZODIAZEPIN QUAL PRESUMPTIVE POSITIVE (NONE DETECT); UR COCAINE QUAL NONE DETECTED (NONE DETECT)
[2019-10-24 03:26] LABS: UR CANNABINOIDS QUAL NONE DETECTED (NONE DETECT); UR METHADONE QUAL NONE DETECTED (NONE DETECT); UR METHAMPHETAMINE QUAL NONE DETECTED (NONE DETECT); UR OPIATES QUAL PRESUMPTIVE POSITIVE (NONE DETECT); UR OXYCODONE QUAL NONE DETECTED (NONE DETECT); UR PCP QUAL NONE DETECTED (NONE DETECT); UR PROPOXYPHENE QUAL NONE DETECTED (NONE DETECT); UR TCA QUAL NONE DETECTED (NONE DETECT)
[2019-10-24 03:33] LABS: AGAP 14; ALBUMIN 3.5 g/dL (3.5-5.0); ALKALINE PHOSPHATASE 87 U/L (32-104); AMYLASE 149 U/L (20-200); BUN 6 mg/dL (8-22); CALCIUM 8.9 mg/dL (8.8-10.2); CHLORIDE 102 mmol/L (98-107); COSMO 276; CREATININE 0.8 mg/dL (0.5-0.9); ESTIMATED GFR > 60; GLUCOSE 143 mg/dL (70-104); GOT 31 U/L (10-30); GPT 21 U/L (10-36); POTASSIUM 3.9 mmol/L (3.5-5.1); SODIUM 138 mmol/L (136-145); TCO2 22 mmol/L (25-35); TOTAL PROTEIN 5.4 g/dL (6.3-8.3)
[2019-10-24] MEDS ORDERED: ATIVAN IV ONE ×2 (03:56→04:34)
[2019-10-24 05:17] LABS: BE -1.9 mmoll (-3.0-3.0); BLOOD TYPE ARTERIAL; HCO3-(ACT) 23.3 mmoll (20.0-26.0); METHB 1.1 % (0.0-1.5); O2HB 94.3 % (95.0-99.0); PCO2(98.6) 25 mmHg (35-45); PO2(98.6) 79 mmHg (60-100); SAMPLE BLOOD; SAO2 97.6 % (95.0-100.0); THB 15.1 g/dL (11.5-17.4)
[2019-10-24 05:21] LABS: ALLEN TEST YES; MODALITY ROOM AIR
--- NOTE | 2019-10-24 05:33 | Diag Imaging Result Doc PS360 ---
EXAM: CHEST-PORTABLE HISTORY: pain TECHNIQUE: Single view COMPARISON: 05/18/2019 FINDINGS: The lungs are well expanded. The heart is not enlarged. The vessels are not distended. There are no infiltrates. No effusion identified. IMPRESSION: Negative exam. Electronically signed by José Luis Sterling 10/24/2019 5:31 AM
[2019-10-24] MEDS ORDERED: GEODON IM ONE (05:34)
[2019-10-24] MEDS ORDERED: STERILE WATER INJ. INJ ONE (05:34)
[2019-10-24 05:58] LABS: LIPASE 611 U/L (13-60)
--- NOTE | 2019-10-24 07:19 | Diag Imaging Result Doc PS360 ---
EXAM: CT ABD/PELVIS W/IV CONT ONLY HISTORY: pain TECHNIQUE: CT abdomen and pelvis with intravenous contrast. COMPARISON: 05/18/2019 FINDINGS: There is a small hiatal hernia. The gallbladder is moderately distended measuring 4.4 x 7.5 cm. No calcified stones or adjacent inflammation. Normal liver, spleen, pancreas, adrenal glands, and kidneys. No hydronephrosis. Prominent atherosclerosis. No aortic aneurysm. There is stool throughout the colon. No bowel obstruction. No inflammation in the right lower quadrant. No abscess. No ascites. The uterus is small. No pelvic mass. Urinary bladder is moderately distended and normal. IMPRESSION: 1.Mild constipation 2.Severe atherosclerosis 3.Moderately distended gallbladder This exam was performed using automated exposure control, adjustment of mA or kV according to patient size, and/or use of iterative reconstruction technique. Electronically signed by José Luis Sterling 10/24/2019 7:16 AM
--- NOTE | 2019-10-24 09:39 | EKG Report ---
Test Performed on : 10/24/2019 03:42:50 AM Test Reason : emboli Blood Pressure : / mmHG Vent. Rate : 074 BPM Atrial Rate : 074 BPM P-R Int : 168 ms QRS Dur : 074 ms QT Int : 450 ms P-R-T Axes : 100 054 052 degrees QTc Int : 499 ms Normal sinus rhythm. Prolonged QT Abnormal ECG When compared with ECG of 07-MAR-2018 19:29, Nonspecific T wave abnormality no longer evident in Lateral leads QT has lengthened Unconfirmed Result
[2019-10-24] MEDS ORDERED: ZOFRAN IV PRN (10:46)
[2019-10-24] MEDS ORDERED: NS 1,000 ML IV ONE (10:46)
[2019-10-24] MEDS: ATIVAN IV PRN ×2 (11:10→20:57)
[2019-10-24] MEDS: DEMEROL IV PRN ×2 (11:11→17:17)
--- NOTE | 2019-10-24 12:12 | HISTORY AND PHYSICAL ---
PRIMARY CARE PROVIDER: Dr. Jhonny Harvey. CHIEF COMPLAINT: Per ED records, abdominal pain. HISTORY OF PRESENT ILLNESS: Ms Eric is a 63-year-old female who carries a past medical history of EtOH abuse, pancreatitis, hypertension, COPD, hypothyroidism, melanoma, bipolar, hyperlipidemia, depression. All information was obtained from ED record secondary to the patient being altered. Their report is she woke up screaming in pain "help me" and was vomiting with nausea and diarrhea. Workup in the ED revealed an elevated lipase at 611. Abdomen and pelvis CT showed mild constipation, severe atherosclerosis, and a moderately distended gallbladder. She is being admitted for pancreatitis and altered mental status and further treatment and evaluation. PAST MEDICAL HISTORY: Per HPI. PAST SURGICAL HISTORY: Multiple ankle surgeries. FAMILY HISTORY: Unknown. SOCIAL HISTORY: Unknown. ALLERGIES: Codeine, sulfa, morphine. HOME MEDICATIONS: Unknown. REVIEW OF SYSTEMS: Hard to obtain secondary to the patient being altered. PHYSICAL EXAMINATION: VITAL SIGNS: Temperature is 98.4 degrees, heart rate 77, respirations 20, blood pressure 141/95 GENERAL: Ms. Eric is a 63-year-old female who is lying on the stretcher in the ED. She is altered. She does not follow any commands. She does not answer any questions when you talk to her or try to arouse her. She just starts flailing in bed and hollering for mama. HEENT: Appears to be atraumatic, normocephalic. Pupils are pinpoint but reactive. NECK: Supple. Trachea midline. CARDIOVASCULAR: S1, S2 appreciated. No murmurs, gallops, or rubs noted. RESPIRATORY: Lung sounds clear bilaterally. GASTROINTESTINAL: Soft, nontender, appeared to be nondistended. Positive bowel sounds 4 quads. EXTREMITIES: Lower extremities negative for edema. She was moving all extremities well. NEUROLOGIC: Could not assess secondary to the patient being altered. DIAGNOSTIC DATA: Abdomen and pelvis CT, mild constipation, severe atherosclerosis, moderately distended gallbladder. Chest x-ray, negative exam. LABORATORY DATA: White count 9, hemoglobin and hematocrit 15 and 44, platelet count 279,000. Sodium 138, potassium 3.9, BUN 6, creatinine 0.8, blood glucose is 143. AST 31, amylase 149, lipase 611. Positive for opiates and benzodiazepines. Urinalysis is negative. ASSESSMENT AND PLAN: 1. Acute pancreatitis. We will continue n.p.o. status. Aggressive IV hydration. We will give her another bolus of IV fluids. Continue with Demerol and Ativan. Zofran for any nausea. 2. Altered mental status, unknown if it is from EtOH withdrawal. The patient's alcohol level was negative. There is no family at the bedside. We probably need to check a head CT, however, the patient is currently altered. We will see if we can get her more calm so we can get good imaging. 3. Reported nausea, vomiting, and diarrhea. We will continue with Zofran. 4. Ethanol abuse. Unknown when her last drink was. We will watch her closely for withdrawals and delirium tremens. 5. Tobacco abuse. 6. Hypertension. Further recommendation to follow physician evaluation, laboratory and diagnostic data. Dictated by DALILA Freitas for Yobani Gibbs MD cc: MD Jhonny Witt MD [facility]ITAL[facility]amud
[2019-10-24] MEDS: NS 1,000 ML IV SCH (13:05)
--- NOTE | 2019-10-24 21:46 | HISTORY AND PHYSICAL ---
ADDENDUM: Patient seen and examined by myself. Full note dictated and discussed with nurse practitioner. Patient presented to the hospital with abdominal pain, subsequently diagnosed with pancreatitis. We are going to admit to the hospital, use Demerol and Ativan as needed, Zofran, keep NPO, and we will follow. We will monitor her for alcohol withdrawal. cc: Yobani Gibbs MD
[2019-10-25 05:55] LABS: AGAP 11; ALBUMIN 3.1 g/dL (3.5-5.0); ALKALINE PHOSPHATASE 79 U/L (32-104); AMYLASE 202 U/L (20-200); BUN 3 mg/dL (8-22); CALCIUM 8.3 mg/dL (8.8-10.2); CHLORIDE 106 mmol/L (98-107); CHOLESTEROL 119 mg/dL (0-200); COSMO 276; CREATININE 0.6 mg/dL (0.5-0.9); ESTIMATED GFR > 60; GLUCOSE 103 mg/dL (70-104); GOT 37 U/L (10-30); GPT 20 U/L (10-36); HDL 56 mg/dL (45-65); LDL 50 mg/dL; LIPASE 294 U/L (13-60); MAGNESIUM 1.8 mg/dL (1.5-2.7); POTASSIUM 4.1 mmol/L (3.5-5.1); SODIUM 140 mmol/L (136-145); TCO2 23 mmol/L (25-35); TOTAL PROTEIN 5.4 g/dL (6.3-8.3); TRIGLYCERIDES 63 mg/dL (35-135); VLDL 13 mg/dL
[2019-10-25] MEDS: NS 1,000 ML IV SCH ×5 (06:30→17:45)
[2019-10-25] MEDS: DEMEROL IV PRN ×4 (08:15→23:11)
[2019-10-25] MEDS ORDERED: ZOFRAN IV PRN (08:34)
[2019-10-25] MEDS: ZOSYN 3.375 GM in NS 50 ML IV SCH ×3 (11:22→23:11)
[2019-10-25] MEDS: NEURONTIN PO SCH ×4 (12:25→22:55)
--- NOTE | 2019-10-25 23:09 | PROGRESS NOTE ---
DATE: 10/25/2019 SUBJECTIVE: The patient notes that she feels bad, but much improved from admission. Still having cough, congestion, still having wheezing, still having shortness of breath. Denies any true chest pains. PHYSICAL EXAMINATION: Temperature 98, pulse 79, respiratory rate 22, BP 154/85.General: The patient is pleasant, in no distress. HEENT: Normocephalic. Neck: Supple. Cardiovascular: Regular rate. Chest: Clear. Abdomen: Soft, tender in the epigastric region, although improved. Extremities: Moves all extremities. ASSESSMENT: 1. Acute pancreatitis. 2. Altered mental status, likely secondary to chronic alcoholism. 3. Nausea and vomiting, improved. 4. Diarrhea, improved. 5. Alcohol abuse and withdrawal. 6. Chronic tobacco abuse. 7. Hypertension. PLAN: We will continue the patient in the hospital, continue to monitor her for withdrawal. Continue to keep her NPO as she is having epigastric pain and will follow. cc: Yobani Gibbs MD
[2019-10-26] MEDS: DEMEROL IV PRN ×4 (03:59→23:19)
[2019-10-26] MEDS: ZOSYN 3.375 GM in NS 50 ML IV SCH ×4 (03:59→23:18)
[2019-10-26 06:12] LABS: HEMATOCRIT 39.1 % (37.0-47.0); HEMOGLOBIN 12.5 g/dL (12.0-16.0); MCH 31.3 PG (27-31); MCV 97.8 FL (81-99); MPV 9.3 FL (7.4-10.4); RDW 12.6 % (11.5-14.5); WBC 9.9 X1000 (4.8-10.8)
[2019-10-26] MEDS: NS 1,000 ML IV SCH ×3 (06:33→18:32)
[2019-10-26] MEDS: SYNTHROID PO SCH (06:34)
[2019-10-26 06:35] LABS: AGAP 14; ALBUMIN 2.8 g/dL (3.5-5.0); ALKALINE PHOSPHATASE 78 U/L (32-104); BUN 6 mg/dL (8-22); CALCIUM 8.1 mg/dL (8.8-10.2); CHLORIDE 104 mmol/L (98-107); COSMO 272; CREATININE 0.6 mg/dL (0.5-0.9); ESTIMATED GFR > 60; GLUCOSE 80 mg/dL (70-104); GOT 35 U/L (10-30); GPT 19 U/L (10-36); POTASSIUM 3.6 mmol/L (3.5-5.1); SODIUM 138 mmol/L (136-145); TCO2 20 mmol/L (25-35); TOTAL PROTEIN 5.1 g/dL (6.3-8.3)
[2019-10-26] MEDS: NEURONTIN PO SCH ×3 (10:17→20:15)
[2019-10-26] MEDS: NICODERM PATCH TD SCH (10:17)
[2019-10-26] MEDS: ATIVAN IV PRN (18:26)
--- NOTE | 2019-10-26 22:30 | PROGRESS NOTE ---
DATE: 10/26/2019 SUBJECTIVE: The patient is feeling a lot better. Still nauseated at times, still has some abdominal pain. Has not really been drinking. PHYSICAL EXAMINATION: Temperature 98 degrees, pulse 75, respiratory rate 18, BP 133/74.General: The patient is awake, pleasant, in no current distress. HEENT: Normocephalic. Neck: Supple. Cardiovascular: Regular rate. Chest: Clear. Abdomen: Soft, nondistended, tender mainly in the epigastric region. Neurologic: No focal changes. ASSESSMENT: 1. Acute pancreatitis. 2. Chronic alcohol use and abuse. 3. Chronic tobacco abuse. 4. Hypertension. PLAN: We are going to advance diet. If she tolerates, hopefully she can transition home today if not, hopefully tomorrow. cc: Yobani Gibbs MD
[2019-10-27] MEDS: DEMEROL IV PRN ×2 (04:59→09:37)
[2019-10-27] MEDS: ZOSYN 3.375 GM in NS 50 ML IV SCH ×3 (04:59→11:59)
[2019-10-27] MEDS: SYNTHROID PO SCH (06:40)
[2019-10-27 07:50] VITALS: BP 131/72
[2019-10-27] MEDS: NICODERM PATCH TD SCH (09:37)
[2019-10-27] MEDS: NEURONTIN PO SCH (09:37)
[2019-10-27] MEDS: NS 1,000 ML IV SCH ×2 (09:43→11:59)
--- NOTE | 2019-10-28 04:16 | DISCHARGE SUMMARY ---
ADMISSION DATE: 10/24/2019 DISCHARGE DATE: 10/27/2019 DISCHARGE DIAGNOSIS: 1. Pancreatitis secondary to alcoholism. 2. Chronic alcoholism. 3. Hypertension. 4. Acute metabolic encephalopathy secondary to alcohol withdrawal, resolved. On discharge she is awake, alert, oriented. 5. Chronic tobacco abuse. 6. Chronic alcohol abuse. 7. Hypertension. CONSULTATIONS: None. PROCEDURES: None. BRIEF HOSPITAL COURSE: The patient is a 63-year-old female who presented to the hospital with acute metabolic encephalopathy, confusion, disorientation, acute delirium and pancreatitis. All felt secondary to alcohol. She was placed on Librium taper. She continued to improve. On discharge, she is awake, alert. She is in no distress. Her pancreatitis has resolved. She is tolerating a full diet. DISPOSITION: Patient will be discharged home. Again discussed with her the perils of drinking to include all mouthwash, cough syrup and any alcohol containing products. Discussed with her the importance of stopping drinking as well as stopping smoking. She will be discharged home. She will follow up outpatient with treatment facility of choice. TIME SPENT: Greater than 30 minutes was spent in total care. No changes made on her diet or activity otherwise. cc: Yobani Gibbs MD
== END 2019-10-27 13:09 | disposition home or self-care (01) | DRG 896 ==
LOC: P.ED 02:32 → P.MEDSURG 11:10
PROVIDERS: ATTEND Family Medicine

== ENCOUNTER 2019-12-01 06:53 | Inpatient (IN) ==
[2019-12-01] MEDS ORDERED: GEODON IM ONE (07:00)
[2019-12-01] MEDS ORDERED: GEODON ONE (07:11)
[2019-12-01] MEDS ORDERED: STERILE WATER INJ. ONE (07:12)
[2019-12-01] MEDS ORDERED: ATIVAN IM ONE (07:20)
--- NOTE | 2019-12-01 07:26 | PROVIDER DOCUMENTATION ---
HPI-Psychological Disorder - General Chief Complaint: Altered Mental Status Stated Complaint: abdominal pain Time Seen by Provider: 12/01/19 07:20 Source: EMS Allergies/Adverse Reactions: Patient Allergies Allergy/AdvReac Type Severity Reaction Status Date / Time codeine [Codeine] Allergy Intermediate NAUSEA/VOMI Verified 12/01/19 09:26 TING sulfamethoxazole Allergy Intermediate HIVES Verified 12/01/19 09:26 [From Bactrim] trimethoprim [From Bactrim] Allergy Intermediate HIVES Verified 12/01/19 09:26 morphine AdvReac Intermediate Unknown Verified 12/01/19 09:26 Home Medications: Home Medication List Medication Instructions Recorded Confirmed Last Taken Type Celecoxib 200 mg PO DAILY 05/18/19 10/31/19 Unknown History Baclofen 10 mg PO TID@0900,1500,2100 10/24/19 10/31/19 Unknown History Fluoxetine HCl 40 mg PO DAILY 10/24/19 10/31/19 Unknown History Omeprazole 40 mg PO DAILY@0700 10/24/19 10/31/19 Unknown History Prazosin [Minipress] 10 mg PO QHS 10/24/19 10/31/19 Unknown History Trazodone [Desyrel] 50 mg PO QHS 10/24/19 10/31/19 Unknown History Levothyroxine Sodium 50 mcg PO DAILY@0700 10/25/19 10/31/19 Unknown History Fluticasone/Salmet 250/50 INH 1 puff INH RTBID 10/31/19 10/31/19 Unknown History [Advair 250/50 Diskus] Hydroxyzine HCl 100 mg PO DAILY 10/31/19 10/31/19 Unknown History CefDINIR [Omnicef] 300 mg PO BID 7 Days #14 cap 11/25/19 Unknown Rx Prednisone 20 mg PO DAILY #5 tab 11/25/19 Unknown Rx - History of Present Illness-Psych Nature of Presenting Problem: Patient was brought by EMS for agitation. She has a psych history and was re cently in the hospital for pneumonia. The told EMS she has had confusion which got worse over the past 3 days. She was covered with feces and was throwing it. O2 sats were 78% upon arrival. patient would not keep o2 on. Combative. Onset/Duration: reports: 3 days ago Timing: reports: still present Severity: reports: severe Situational problems related to:: reports: N/A Psychiatric Complaints: reports: angry, agitated, confused Substance Use: reports: other (unknown at this time) Previous psych related hospitalizations?: Yes Patient arrived by:: EMS called by spouse/family Similar Symptoms Previously?: Yes Recently seen or treated by another doctor?: No - Suicidal Ideation Clinician's estimation of suicide risk?: uncertain risk Review of Systems - Adult - REVIEW OF SYSTEMS - ADULT ROS:: unobtainable per condition Constitutional: reports: see HPI Past History - Adult - PAST MEDICAL HISTORY-ADULT Review of Records: reports: Old Records Reviewed, Nursing Assessment Review Cardiovascular: reports: HTN Respiratory: reports: COPD Endocrine/Immune: reports: thyroid disorder Other Conditions: reports: other cancer (melanoma) - PRIOR SURGERIES/PROCEDURES Surgical/Procedure History: reports: reviewed, not pertinent - IMMUNIZATION STATUS Childhood Immunizations: See Nurse Assessment Flu Vaccine: See Nurse Assessment - FAMILY HISTORY Family History: reviewed, not pertinent Physical Exam-Psych Focus - Physical Exam-Psych Initial Vital Signs Reviewed: Yes Appearance: anxious, combative Neurological: agitated, disoriented x 3 Behavior/Eye Contact/Speech: belligerent Thoughts/Hallucinations: paranoid, visual hallucinations HENMT: normocephalic/atraumatic, moist mucous membranes, normal ENT inspection Neck: non-tender, full range of motion, supple Respiratory: chest non-tender, lungs clear, increased rate (hyperventilating) Cardiovascular: normal peripheral pulses, regular rate, rhythm, no edema, no gallop, no JVD, no murmur Abdominal Exam: normal bowel sounds, non tender, soft, no organomegaly, no pulsatile mass Back Exam: normal inspection, no CVA tenderness Extremity: normal range of motion, non-tender Integumentary: normal color, normal turgor, warm/dry, other (old skin tear left deltoid with bandage) Progress - PLAN OF CARE/RESULTS Progress/Plan/Lab Results: Vital Signs - 8 hr 12/01/19 16:43 Pulse Rate 84 Respiratory Rate 18 Blood Pressure 163/80 O2 Sat by Pulse Oximetry 92 L Laboratory Results - last 24 hr 12/01/19 12/01/19 12/01/19 09:09 09:10 09:10 WBC 11.02 H RBC 3.96 L Hgb 12.3 Hct 37.5 MCV 94.7 MCH 31.1 H MCHC 32.8 L RDW Std Deviation 15.4 H Plt Count 695 H MPV 8.9 Immature Gran % (Auto) 0.3 Neut % (Auto) 65.5 Lymph % (Auto) 21.9 [place] % (Auto) 8.4 Eos % (Auto) 3.3 Baso % (Auto) 0.6 Immature Gran # (Auto) 0.03 Neut # (Auto) 7.22 H Lymph # (Auto) 2.41 [place] # (Auto) 0.93 H Eos # (Auto) 0.36 Baso # (Auto) 0.07 PT INR PTT (Actin FS) Sodium 147 H Potassium 4.1 Chloride 105 Carbon Dioxide 29 Anion Gap 13 BUN 9 Creatinine 0.9 Estimated GFR/1.73 m2 > 60 BUN/Creatinine Ratio 10 Glucose 97 Calculated Osmolality 291 Calcium 9.6 Total Bilirubin 0.48 AST 29 ALT 20 Alkaline Phosphatase 103 Creatine Kinase 53 Troponin T High Sens Total Protein 6.5 Albumin 4.1 Globulin 2.4 Albumin/Globulin Ratio 1.7 Plasma Lactate TSH Urine Source CATH Urine Color YELLOW Urine Turbidity CLEAR Urine pH 6.5 Ur Specific [place] 1.005 Urine Protein NEGATIVE Ur Glucose (Stick) NEGATIVE Ur Ketones (Stick) NEGATIVE Urine Blood NEGATIVE Urine Nitrite NEGATIVE Urine Bilirubin NEGATIVE Urobilinogen Dipstick NORMAL Urine Leukocytes NEGATIVE Urine WBC (Auto) <10 Urine RBC (Auto) <10 U Epithel Cells (Auto) <10 Urine Bacteria (Auto) NEGATIVE Plasma/Serum Ethyl Alc 12/01/19 12/01/19 12/01/19 09:10 09:10 09:10 WBC RBC Hgb Hct MCV MCH MCHC RDW Std Deviation Plt Count MPV Immature Gran % (Auto) Neut % (Auto) Lymph % (Auto) [place] % (Auto) Eos % (Auto) Baso % (Auto) Immature Gran # (Auto) Neut # (Auto) Lymph # (Auto) [place] # (Auto) Eos # (Auto) Baso # (Auto) PT INR PTT (Actin FS) Sodium Potassium Chloride Carbon Dioxide Anion Gap BUN Creatinine Estimated GFR/1.73 m2 BUN/Creatinine Ratio Glucose Calculated Osmolality Calcium Total Bilirubin AST ALT Alkaline Phosphatase Creatine Kinase Troponin T High Sens 35 H Total Protein Albumin Globulin Albumin/Globulin Ratio Plasma Lactate 1.1 TSH Urine Source Urine Color Urine Turbidity Urine pH Ur Specific [place] Urine Protein Ur Glucose (Stick) Ur Ketones (Stick) Urine Blood Urine Nitrite Urine Bilirubin Urobilinogen Dipstick Urine Leukocytes Urine WBC (Auto) Urine RBC (Auto) U Epithel Cells (Auto) Urine Bacteria (Auto) Plasma/Serum Ethyl Alc 12/01/19 12/01/19 09:10 09:10 WBC RBC Hgb Hct MCV MCH MCHC RDW Std Deviation Plt Count MPV Immature Gran % (Auto) Neut % (Auto) Lymph % (Auto) [place] % (Auto) Eos % (Auto) Baso % (Auto) Immature Gran # (Auto) Neut # (Auto) Lymph # (Auto) [place] # (Auto) Eos # (Auto) Baso # (Auto) PT 12.6 INR 0.94 PTT (Actin FS) 32.1 Sodium Potassium Chloride Carbon Dioxide Anion Gap BUN Creatinine Estimated GFR/1.73 m2 BUN/Creatinine Ratio Glucose Calculated Osmolality Calcium Total Bilirubin AST ALT Alkaline Phosphatase Creatine Kinase Troponin T High Sens Total Protein Albumin Globulin Albumin/Globulin Ratio Plasma Lactate TSH 2.96 Urine Source Urine Color Urine Turbidity Urine pH Ur Specific [place] Urine Protein Ur Glucose (Stick) Ur Ketones (Stick) Urine Blood Urine Nitrite Urine Bilirubin Urobilinogen Dipstick Urine Leukocytes Urine WBC (Auto) Urine RBC (Auto) U Epithel Cells (Auto) Urine Bacteria (Auto) Plasma/Serum Ethyl Alc Orders Category Date Time Status Cardiac Monitoring NOW Care 12/01/19 09:22 Active Dressing change DIRECTED Care 12/01/19 08:36 Active Notify Provider of NEWS Score NOW Care 12/01/19 09:22 Active Restraint Init/Renew Violent ONCE Care 12/01/19 11:58 Active CHEST-PORTABLE [RAD] Stat Exams 12/01/19 07:[address] HEAD W/O CONTRAST [CT] Stat Exams 12/01/19 09:03 Completed ALCOHOL BLOOD Stat Lab 12/01/19 09:10 Completed BLOOD CULTURE [BLDCUL] Stat Lab 12/01/19 11:50 Stop Req CBC WITH ELECTRONIC DIFF [HEME] Stat Lab 12/01/19 09:10 Completed CK PROFILE [SP CHEM] Stat Lab 12/01/19 09:10 Completed COMPREHENSIVE METABOLIC PANEL [CHEM] Stat Lab 12/01/19 09:10 Completed LACTATE, PLASMA [CHEM] Q3H Lab 12/01/19 09:10 Completed PROTIME WITH INR [COAG] Stat Lab 12/01/19 09:10 Completed PTT [COAG] Stat Lab 12/01/19 09:10 Completed TROPONIN T HIGH SENSITIVITY Stat Lab 12/01/19 09:10 Completed TSH Stat Lab 12/01/19 09:10 Completed UA NIMS W/REFLEX CULT [URINALYSIS] Stat Lab 12/01/19 09:09 Completed URINE DRUG SCREEN Stat Lab 12/01/19 09:00 Received 0.9% Sodium Chloride Inj [Ns] 1,000 ml Med 12/01/19 10:35 Discontinued IV 999 mls/hr Lorazepam [Ativan] Med 12/01/19 07:20 Discontinued 1 mg IM NOW ONE Lorazepam [Ativan] Med 12/01/19 14:18 Discontinued 1 mg IV NOW ONE Lorazepam [Ativan] Med 12/01/19 14:40 Discontinued 1 mg IV NOW ONE Neomycin/Bacitrcn/Polymyx Oint [Neosporin Ointment Med 12/01/19 08:36 Discontinued Packet] 1 each TOP NOW ONE Water, Sterile Inj [Sterile Water Inj.] Med 12/01/19 08:06 Discontinued 1.2 ml INJ NOW ONE Water, Sterile Inj [Sterile Water Inj.] Med 12/01/19 07:12 Discontinued 10 ml .ROUTE .STK-MED ONE Ziprasidone [Geodon] Med 12/01/19 07:11 Discontinued 20 mg .ROUTE .STK-MED ONE Ziprasidone [Geodon] Med 12/01/19 07:00 Discontinued 20 mg IM NOW ONE Zosyn 3.375 gm/Ns IV Q6h Med 12/01/19 17:00 Ordered Piperacillin/Tazobactam [Zosyn] 3.375 gm 0.9% Sodium Chloride Inj [Ns] 50 ml IV Q6H O2 Per Protocol Stat Oth 12/01/19 09:22 Active EKG [EKG] Stat Ther 12/01/19 07:34 Ordered Result Diagrams: 12/01/19 09:10 12/01/19 09:10 - REASSESSMENT Reassessment #1 Time Reassessed: 14:14 Status: unchanged (still confused and combative) - PSYCHIATRIC Medically clear for psych eval and/or transfer to IP bed.: Yes - EKG 1 Time of EKG reading by physician:: 08:25 EKG Read and Signed by:: Cornelio Power EKG Interpretation (*Must complete 3 of following elements*): Abnormal Rate: 76 Rhythm: sinus [place]: normal ST Wave: non-specific ST changes (poss. ant/lat ischemic changes) - CONSULTS/PCP/HOSPITALIST Notification #1 *Consult/PCP/Hospitalist*: Angel Rios Time Discussed: 16:52 Consult Disposition: Will see in ED Departure - Departure Date of Disposition Decision: 12/01/19 Time of Disposition Decision: 16:52 DIAGNOSIS: Bipolar 1 disorder with moderate rhianna Dyspnea Qualifiers: Dyspnea type: acute respiratory distress Qualified Code(s): R06.03 - Acute respiratory distress Pneumonia Qualifiers: Pneumonia type: due to unspecified organism Laterality: left Lung location: lower lobe of lung Qualified Code(s): J18.1 - Lobar pneumonia, unspecified organism COPD (chronic obstructive pulmonary disease) Qualifiers: COPD type: COPD with acute exacerbation Qualified Code(s): J44.1 - Chronic obstructive pulmonary disease with (acute) exacerbation Disposition: ADMITTED INPATIENT 09 Certified Medical Emergency: Emergent Condition: Fair Referrals and Follow-Ups: None,PCP [Primary Care Provider] - - Critical Care Note This patient required my direct & personal management of CC.: No Attestation - Physician/ TAMIKO Attestation Patient care was provided by Advanced Practice Provider:: No The physician spent face to face time with patient:: Yes Advanced Practice Provider documentation review:: Supervising physician onsite and consulted in the evaluation and care of this patient. The physician did have a face to face encounter with the patient.
[2019-12-01] MEDS ORDERED: STERILE WATER INJ. INJ ONE (08:06)
[2019-12-01] MEDS ORDERED: NEOSPORIN OINTMENT PACKET TOP ONE (08:36)
[2019-12-01 09:20] LABS: URINE SOURCE CATH
[2019-12-01 09:36] LABS: BASO# 0.07 X1000 (0.0-0.2); BASO% 0.6 % (0.0-0.8); EOS# 0.36 X1000 (0.0-0.7); EOS% 3.3 % (0.0-10.0); HEMATOCRIT 37.5 % (37.0-47.0); HEMOGLOBIN 12.3 g/dL (12.0-16.0); IMM GRAN# 0.03 X1000 (0.0-0.04); IMM GRAN% 0.3 % (0.0-0.5); LYMPH# 2.41 X1000 (1.2-3.4); LYMPH% 21.9 % (20.5-51.1); MCH 31.1 PG (27-31); MCHC 32.8 g/dL (33-37); MCV 94.7 FL (81-99); MONO# 0.93 X1000 (0.11-0.59); MONO% 8.4 % (1.7-9.3); MPV 8.9 FL (7.4-10.4); NEUT# 7.22 X1000 (1.4-6.5); NEUT% 65.5 % (42.2-75.2); PLT 695 X1000 (130-400); RBC 3.96 XMIL (4.2-5.4); RDW 15.4 % (11.5-14.5); WBC 11.02 X1000 (4.8-10.8)
[2019-12-01 09:46] LABS: INR 0.94; PROTIME 12.6 Seconds (11.0-16.0)
[2019-12-01 09:47] LABS: PTT 32.1 Seconds (22.3-41.8)
[2019-12-01 09:51] LABS: BILIRUBIN URINE NEGATIVE (NEGATIVE); BLOOD URINE NEGATIVE (NEGATIVE); COLOR YELLOW; GLUCOSE URINE NEGATIVE (NEGATIVE); KETONE URINE NEGATIVE (NEGATIVE); LEUKOCYTES URINE NEGATIVE (NEGATIVE); NITRITE URINE NEGATIVE (NEGATIVE); PH URINE 6.5; PROTEIN URINE NEGATIVE (NEGATIVE); SP GRAVITY URINE 1.005; TURBIDITY URINE CLEAR (CLEAR); UROBILINOGEN URINE NORMAL (NORMAL)
[2019-12-01 09:55] LABS: AGAP 13; ALB/GLOB RATIO 1.7; ALBUMIN 4.1 g/dL (3.5-5.0); ALKALINE PHOSPHATASE 103 U/L (32-104); BUN 9 mg/dL (8-22); CALCIUM 9.6 mg/dL (8.8-10.2); CHLORIDE 105 mmol/L (98-107); CK PROFILE 53 U/L (24-173); COSMO 291; CREATININE 0.9 mg/dL (0.5-0.9); ESTIMATED GFR > 60; GLUCOSE 97 mg/dL (70-104); GOT 29 U/L (10-30); GPT 20 U/L (10-36); POTASSIUM 4.1 mmol/L (3.5-5.1); SODIUM 147 mmol/L (136-145); TCO2 29 mmol/L (25-35); TOTAL BILIRUBIN 0.48 mg/dL (0.20-1.00); TOTAL PROTEIN 6.5 g/dL (6.3-8.3)
[2019-12-01 10:02] LABS: UR EPITHELIAL CELLS <10 /HPF (<10); URINE BACTERIA NEGATIVE /HPF; URINE RBC <10 /HPF (<10); URINE WBC <10 /HPF (<10)
[2019-12-01] MEDS ORDERED: NS 1,000 ML IV ONE (10:35)
--- NOTE | 2019-12-01 11:21 | Diag Imaging Result Doc PS360 ---
EXAM: CHEST-PORTABLE INDICATION: altered / hypoxia TECHNIQUE: One view COMPARISON: 11/25/2019 FINDINGS: There is diffuse patchy infiltrates seen throughout both lungs that is predominantly interstitial on a background of fibrosis. This probably represents superimposed edema and/or pneumonia. These lung markings have increased in prominence slightly since the previous study, most significantly at the left lung base. There is no discrete pleural fluid collection or pneumothorax. The cardiomediastinal silhouette and central vasculature are grossly unremarkable. IMPRESSION: Diffuse interstitial and airspace infiltrates with a background of fibrosis similar but more pronounced than the previous study. Electronically signed by Sukhwinder Roland 12/01/2019 11:19 AM
--- NOTE | 2019-12-01 11:22 | Diag Imaging Result Doc PS360 ---
EXAM: CT HEAD W/O CONTRAST INDICATION: altered mental status TECHNIQUE: This exam was performed using automated exposure control, adjustment of mA or kV according to patient size, and/or use of iterative reconstruction technique. COMPARISON: None. FINDINGS: There is moderate diffuse brain atrophy. There is patchy low attenuation in the periventricular and subcortical white matter suggesting at least moderate microangiopathy. There is no definite acute infarct given the limited sensitivity of CT versus MRI. There is no discrete intracranial mass, mass effect, or intracranial hemorrhage. The surrounding soft tissues and bony structures are essentially unremarkable. IMPRESSION: Chronic appearing changes as described above. No definite acute intracranial pathology by CT. Electronically signed by Sukhwinder Roland 12/01/2019 11:19 AM
[2019-12-01] MEDS ORDERED: ATIVAN IV ONE ×2 (14:18→14:40)
[2019-12-01] MEDS ORDERED: TYLENOL PO PRN (16:56)
[2019-12-01] MEDS: ZOSYN 3.375 GM in NS 50 ML IV SCH (17:00)
[2019-12-01 17:01] LABS: UR AMPHETAMINES QUAL NONE DETECTED (NONE DETECT); UR BARBITUATES QUAL NONE DETECTED (NONE DETECT); UR BENZODIAZEPIN QUAL NONE DETECTED (NONE DETECT); UR CANNABINOIDS QUAL NONE DETECTED (NONE DETECT); UR COCAINE QUAL NONE DETECTED (NONE DETECT); UR METHADONE QUAL NONE DETECTED (NONE DETECT); UR OPIATES QUAL NONE DETECTED (NONE DETECT); UR OXYCODONE QUAL NONE DETECTED (NONE DETECT); UR PCP QUAL NONE DETECTED (NONE DETECT)
[2019-12-01] MEDS ORDERED: HALDOL IV ONE (17:14)
--- NOTE | 2019-12-01 17:28 | EKG Report ---
Test Performed on : 12/01/2019 08:21:54 AM Test Reason : altered mental Blood Pressure : / mmHG Vent. Rate : 076 BPM Atrial Rate : 076 BPM P-R Int : 146 ms QRS Dur : 076 ms QT Int : 438 ms P-R-T Axes : 038 -03 -53 degrees QTc Int : 492 ms Normal sinus rhythm. Possible Inferior infarct , age undetermined T wave abnormality, consider anterolateral ischemia Abnormal ECG When compared with ECG of 31-OCT-2019 23:28, Previous ECG has undetermined rhythm, needs review Borderline criteria for Inferior infarct are now present Inverted T waves have replaced nonspecific T wave abnormality in Inferior leads T wave inversion more evident in Anterior leads Unconfirmed Result
--- NOTE | 2019-12-01 17:58 | HISTORY AND PHYSICAL ---
PRIMARY CARE PROVIDER: Dr. Jhonny Harvey. CHIEF COMPLAINT: Altered mental status. HISTORY OF PRESENT ILLNESS: Ms. Jazmyn Eric is a 63-year-old, female with a medical history of alcohol abuse, pancreatitis, COPD, bipolar disorder, and depression, who was recently here last month. Was treated for pneumonia, acute respiratory failure, and acute respiratory distress syndrome, where she was sent home on oxygen therapy. She was just recently discharged on the , which is around 6 to 7 days ago. Her length of stay was at 25 days. She was stable at home. However, it was reported that the last 3 days, she started having more altered mentation, was getting confused and agitated, and not keeping her oxygen on. When she presented, she presented confused and refusing to wear her oxygen. She was temporarily placed back on oxygen, high dose, but weaned back down to 2 L once they got her agitation more controlled with Ativan and Geodon. We are going to admit her. Her chest x-ray is essentially close to the same but we will go ahead and add some Zosyn, some nebulizers, and then we will continue to monitor her for possible improvement in her psychiatric altered mental status. PAST MEDICAL HISTORY: 1. COPD. 2. Alcohol abuse. 3. Pancreatitis. 4. Hypertension. 5. Hypothyroidism. 6. Melanoma. 7. Bipolar disorder. 8. Hyperlipidemia. 9. Depression. 10. Arthritis. PAST SURGICAL HISTORY: 1. Right ankle fusion. 2. Left ankle surgery. 3. Plastic surgery to the face. 4. Back surgery. SOCIAL HISTORY: Smokes a 4th pack of cigarettes per day. Drinks wine daily. There was no reported illicit drug use. She is disabled. FAMILY HISTORY: Family history is positive for diabetes, heart disease, dementia, and obesity. ALLERGIES: Codeine, sulfa, and morphine, with Bactrim as well. HOME MEDICATIONS: Have not been reconciled yet. REVIEW OF SYSTEMS: Unable to obtain. PHYSICAL EXAMINATION: VITAL SIGNS: Temperature 98.4 degrees, heart rate 84, respiratory rate 18, blood pressure 163/80, O2 saturation 92% on 2 L nasal cannula. GENERAL: Ms. Jazmyn Eric is a 63-year-old, female who is extremely agitated, talking to people that are not there, requiring restraints to keep from hurting herself. HEENT: Atraumatic, normocephalic. Pupils equal, round, and reactive. Mucous membranes are moist. NECK: Trachea midline. CARDIOVASCULAR: S1, S2. Regular rate and rhythm. No rubs, gallops, murmurs. No lower extremity edema. There are +2 dorsalis and radial pulses. Negative JVD or carotid bruits. PULMONARY: Clear to auscultate bilateral breath sounds. No accessory muscle use or work of breathing noted. Tolerating 2 L nasal cannula. GI: Soft, nontender, nondistended. Positive bowel sounds x4. EXTREMITIES: Currently, upper extremities are restrained but she moves all extremities equally. NEUROLOGICAL: Completely disoriented and agitated, fighting, and not cooperative at all. SKIN: Warm, dry, intact. LABORATORY DATA: White blood cells 11,000, hemoglobin 12, hematocrit 37, platelet count 695,000. INR 0.94, PTT is 32.1. Sodium 147, potassium 4.1, BUN 9, creatinine 0.9, glucose 97, calcium 9.6. Bilirubin 0.48, AST 29, ALT 20. CK 53, troponin is 35. Albumin is 4.1, lactate 1.1. TSH 2.96. Urinalysis negative. Urine drug screen negative. Alcohol zero. IMAGING: Head CT, chronic ischemic changes. No acute changes. Chest x-ray, diffuse interstitial airspace infiltrates with a background of fibrosis similar to but a little more pronounced than the previous study, edema or it is pneumonia. EKG is normal sinus rhythm, rate 76, QTc 492. ASSESSMENT/PLAN: 1. Bipolar disorder with acute psychosis. We will do Seroquel 25 mg by mouth twice daily. We will do intravenous Haldol as needed every 6 hours for agitation. She is currently restrained in bilateral soft wrist restraints. Very delusional, hallucinating. 2. Recent treatment for bilateral pneumonia. It still seems to be there so she has been started on Zosyn for now but currently she is stable. 3. Chronic obstructive pulmonary disease, no exacerbation, with chronic hypoxia. Had been evaluated and qualified for home oxygen on her previous admission this month for which she is currently on 2 L and tolerating that well. We will do albuterol and Atrovent nebulizers every 6 hours while awake. 4. Alcohol abuse. Currently, alcohol is 0. She has been increasing with her confusion the last 3 days. This could possibly even be alcohol withdrawal. Apparently, she drinks wine on a daily basis but if she has not had any wine since she was discharged on the , she was in the hospital for 25 days prior to that, so this is most likely not from alcohol withdrawal. 5. Hypertension. 6. Hypothyroidism. We will continue Synthroid once it is verified. 7. Deep venous thrombosis prophylaxis. Sequential compression devices. Dictated by DALILA Amador for Benjamín Frye MD cc: DALILA Amador Patient with confusion and hallucinations. actively talking to a chair as if it were her while I was in the room. initial evaluation not really showing any precipitating cause but will cover with empiric antibiotics for now given recent pneumonia. lungs with slightly decreased air entry throughout but no wheezing, rales, or rhonchi currently. MTDD
[2019-12-01] MEDS ORDERED: NEOSPORIN OINTMENT PACKET ONE (18:47)
[2019-12-01] MEDS: SEROQUEL PO SCH (22:15)
[2019-12-01] MEDS: HALDOL IV PRN (22:28)
[2019-12-01] MEDS: DUONEB (A & A) INH SCH (23:37)
[2019-12-01] MEDS: ATIVAN IV PRN (23:38)
[2019-12-02] MEDS: ZOSYN 3.375 GM in NS 50 ML IV SCH ×4 (02:24→20:13)
[2019-12-02] MEDS: ATIVAN IV PRN ×3 (04:31→15:25)
[2019-12-02 07:12] LABS: BASO# 0.05 X1000 (0.0-0.2); BASO% 0.6 % (0.0-0.8); EOS# 0.49 X1000 (0.0-0.7); EOS% 5.4 % (0.0-10.0); HEMATOCRIT 32.3 % (37.0-47.0); HEMOGLOBIN 10.4 g/dL (12.0-16.0); LYMPH# 2.21 X1000 (1.2-3.4); LYMPH% 24.3 % (20.5-51.1); MCH 31.6 PG (27-31); MCHC 32.2 g/dL (33-37); MCV 98.2 FL (81-99); MONO% 12.1 % (1.7-9.3); MPV 8.9 FL (7.4-10.4); NEUT# 5.24 X1000 (1.4-6.5); NEUT% 57.6 % (42.2-75.2); PLT 584 X1000 (130-400); RBC 3.29 XMIL (4.2-5.4); RDW 16.3 % (11.5-14.5); WBC 9.09 X1000 (4.8-10.8)
[2019-12-02 07:16] LABS: AGAP 12; ALB/GLOB RATIO 1.1; ALKALINE PHOSPHATASE 81 U/L (32-104); BUN 6 mg/dL (8-22); CALCIUM 8.4 mg/dL (8.8-10.2); CHLORIDE 107 mmol/L (98-107); COSMO 288; CREATININE 0.8 mg/dL (0.5-0.9); ESTIMATED GFR > 60; GLUCOSE 101 mg/dL (70-104); GOT 30 U/L (10-30); GPT 19 U/L (10-36); POTASSIUM 3.2 mmol/L (3.5-5.1); SODIUM 146 mmol/L (136-145); TCO2 27 mmol/L (25-35); TOTAL BILIRUBIN 0.47 mg/dL (0.20-1.00); TOTAL PROTEIN 5.8 g/dL (6.3-8.3)
--- NOTE | 2019-12-02 08:10 | Diag Imaging Result Doc PS360 ---
EXAM: CHEST-PORTABLE INDICATION: pneumonia TECHNIQUE: One view COMPARISON: 12/01/2019 FINDINGS: Lung volumes are lower. Patchy infiltrates bilaterally with a background of pulmonary fibrosis is grossly unchanged. No new consolidation is identified. Cardiac silhouette is stable. IMPRESSION: Lower lung volumes. Stable chest, otherwise. Electronically signed by Sukhwinder Roland 12/02/2019 8:07 AM
[2019-12-02] MEDS: SEROQUEL PO SCH ×2 (08:27→20:13)
[2019-12-02] MEDS: DUONEB (A & A) INH SCH ×3 (08:59→23:11)
[2019-12-02] MEDS ORDERED: LASIX IV ONE (10:25)
--- NOTE | 2019-12-02 10:49 | PROGRESS NOTE ---
DATE: 12/02/2019 INTERVAL HISTORY: No acute events overnight. Ms. Eric was admitted for hypoxic respiratory failure and was started on broad-spectrum antibiotics. She continues to have episodes of agitation. SUBJECTIVE: Ms. Eric is confused, agitated, and wants to go home. She could not provide any meaningful clinical history. She does not appear in obvious distress. She denies any chest pain or cough. REVIEW OF SYSTEMS: Could not be reliably obtained. VITALS: Currently, temperature 97.9 degrees, pulse 80, respiratory rate 18, blood pressure 130/76, saturating 100% on 2 L nasal cannula. PHYSICAL EXAMINATION: Ms. Eric is not in acute distress. Oral cavity is dry. Lungs: Air entry bilaterally equal. No wheeze or rhonchi. She had crackles in bilateral infrascapular regions. Cardiovascular: S1, S2 normal. Not tachycardic. No murmur, rub, or gallop. Abdomen: Soft. No lower extremity edema. She is alert. She is oriented to herself. She could tell me her date. She is not oriented to current date or situation. She is moving all extremities spontaneously. No facial droop. Pupils are bilaterally equal, reacting to light. Extraocular movements are intact by both sides of the midline. LABS: Suggestive of WBC of 9000, hemoglobin 10.4, platelets 584,000. She does have hypokalemia which is currently being repleted. IMAGING: Chest x-ray suggests low lung volume, patchy infiltrate bilaterally. ASSESSMENT AND PLAN: 1. Acute hypoxic respiratory failure and sepsis due to bilateral multifocal pneumonia, predominantly in the lower lobe. Continue intravenous Zosyn. Add intravenous linezolid. Follow up urine antigen and blood culture results. Continue inhaled bronchodilators. She has a history of chronic obstructive pulmonary disease and was recently admitted to the hospital in November for multifocal pneumonia as well as acute respiratory distress syndrome. I will give her a one-time dose of intravenous Lasix. Follow up urine streptococcus antigen and sputum culture. 2. Acute encephalopathy on presentation which could be in the setting of acute hypoxic respiratory failure as the patient was reported to be not wearing her oxygen at home and was hypoxic on presentation. Current pneumonia could also be contributing to it. CT scan of head did not have any acute intracranial pathology except chronic-appearing microvascular angiopathy. Continue to address her underlying medical issues. She also has a reported history of bipolar mood disorder. 3. History of bipolar mood disorder and current agitation. I will keep her on quetiapine and as- needed haloperidol. I am awaiting further medication reconciliation. 4. Hypokalemia, currently being repleted. 5. History of chronic obstructive pulmonary disease, currently not in acute exacerbation. 6. History of alcohol abuse, has not had any recent alcohol consumption. 7. History of essential hypertension and hypothyroidism. I will resume her home medications as tolerated. 8. Disposition. Continue monitor patient in PVC. For her acute urinary retention, I will insert Livingston catheter. I will keep her on oxygen through nasal cannula for hypoxic respiratory failure. Currently, because of mental status, she had has not been able to participate in physical therapy and she needs a physical therapy order once she is stable. cc: Jayden Gonzalez MD
[2019-12-02] MEDS ORDERED: PHENERGAN PO PRN (11:03)
[2019-12-02] MEDS ORDERED: BENTYL PO PRN (11:03)
--- NOTE | 2019-12-02 11:06 | SEPSIS: TISSUE PERFUSION ASSMT ---
Sepsis: Tissue Perfusion Assmt - Physical Exam Assessment Date: 12/02/19 Time Assessment Initialized: 10:20 Vital Signs: Last Vital Signs Temp 97.9 F 12/02/19 07:57 Pulse 86 12/02/19 08:59 Resp 18 12/02/19 08:59 BP 131/76 12/02/19 07:57 Pulse Ox 98 12/02/19 08:59 Height 5 ft 7 in Weight 77.196 kg Lung Sounds: crackles Heart Sounds: Regular Capillary Refill Time: Less Than 2 Seconds Peripheral Pulse Evaluation: radial (R): 2+, radial (L): 2+, dorsalis-pedis (R): 2+, dorsalis-pedis (L): 2+, posterior tibialis (R): 2+, posterior tibialis (L): 2+ Skin Exam: pink - Alternative Fluid Bolus Bolus Option: Alternative Fluid Resuscitation Bolus for morbidly obese patients with a BMI >30, Refer to [facility] [place] Body Weight Chart for Reference. Is patient's BMI >30?: No Fluid Bolus dosed using the [facility] [place] Body Weight Chart: No - Impression Impression: Tissue Perfusion Adequate (Patient has pulmonary edema. Needs Lasix, so IV fluid bolus not ordered.)
[2019-12-02] MEDS: ZYVOX 600 MG/D5W 600 MG/300 ML IVPB IV SCH ×2 (11:35→22:39)
[2019-12-02] MEDS: POTASSIUM CHLORIDE 20 MEQ/SWI 20 MEQ/100 ML IVPB IV SCH ×2 (11:43→13:50)
[2019-12-02] MEDS: PROZAC PO SCH (11:43)
[2019-12-02] MEDS: HALDOL IV PRN (12:06)
[2019-12-02] MEDS: MINIPRESS PO SCH (20:13)
[2019-12-03] MEDS: ZOSYN 3.375 GM in NS 50 ML IV SCH ×4 (02:29→20:48)
[2019-12-03] MEDS: SYNTHROID PO SCH (06:23)
[2019-12-03] MEDS: PRILOSEC PO SCH (06:24)
[2019-12-03 06:44] LABS: BASO# 0.07 X1000 (0.0-0.2); BASO% 0.7 % (0.0-0.8); EOS# 0.93 X1000 (0.0-0.7); EOS% 9.5 % (0.0-10.0); HEMATOCRIT 29.2 % (37.0-47.0); HEMOGLOBIN 9.3 g/dL (12.0-16.0); LYMPH# 2.14 X1000 (1.2-3.4); LYMPH% 21.9 % (20.5-51.1); MCH 30.4 PG (27-31); MCHC 31.8 g/dL (33-37); MCV 95.4 FL (81-99); MONO# 0.86 X1000 (0.11-0.59); MONO% 8.8 % (1.7-9.3); MPV 8.8 FL (7.4-10.4); NEUT# 5.76 X1000 (1.4-6.5); NEUT% 59.1 % (42.2-75.2); PLT 581 X1000 (130-400); RBC 3.06 XMIL (4.2-5.4); RDW 15.9 % (11.5-14.5); WBC 9.76 X1000 (4.8-10.8)
[2019-12-03 07:02] LABS: AGAP 11; ALB/GLOB RATIO 1.1; ALBUMIN 2.9 g/dL (3.5-5.0); ALKALINE PHOSPHATASE 78 U/L (32-104); BUN 5 mg/dL (8-22); CALCIUM 8.3 mg/dL (8.8-10.2); CHLORIDE 104 mmol/L (98-107); COSMO 279; CREATININE 0.9 mg/dL (0.5-0.9); ESTIMATED GFR > 60; GLUCOSE 105 mg/dL (70-104); GOT 23 U/L (10-30); GPT 16 U/L (10-36); POTASSIUM 3.2 mmol/L (3.5-5.1); SODIUM 141 mmol/L (136-145); TCO2 26 mmol/L (25-35); TOTAL BILIRUBIN 0.58 mg/dL (0.20-1.00); TOTAL PROTEIN 5.6 g/dL (6.3-8.3)
--- NOTE | 2019-12-03 07:24 | EKG Report ---
Test Performed on : 12/03/2019 06:48:02 AM Test Reason : Follow up QTc Blood Pressure : / mmHG Vent. Rate : 089 BPM Atrial Rate : 089 BPM P-R Int : 158 ms QRS Dur : 074 ms QT Int : 382 ms P-R-T Axes : 038 008 -35 degrees QTc Int : 464 ms Normal sinus rhythm. T wave abnormality, consider inferior ischemia T wave abnormality, consider anterolateral ischemia Abnormal ECG When compared with ECG of 01-DEC-2019 08:21, (Unconfirmed) No significant change was found Confirmed by Fabricio Harvey MD ([id number]) on 12/03/2019 2:59:12 PM
[2019-12-03] MEDS: ZYVOX 600 MG/D5W 600 MG/300 ML IVPB IV SCH ×3 (09:08→22:00)
[2019-12-03] MEDS: CRESTOR PO SCH (09:09)
[2019-12-03] MEDS: PROZAC PO SCH (09:09)
[2019-12-03] MEDS: SEROQUEL PO SCH ×2 (09:09→20:48)
[2019-12-03] MEDS: DUONEB (A & A) INH SCH ×2 (09:25→23:03)
--- NOTE | 2019-12-03 13:14 | PROGRESS NOTE ---
DATE: 12/03/2019 SUBJECTIVE: I have seen and examined Ms. Eric this morning. Ms. Eric refers to be doing well. Denies any new complaints. She said her breathing is getting better. She is currently on 3 L of nasal cannula which is usually the amount of oxygen that she is on at home. OBJECTIVELY: Vital Signs: Her current vitals, blood pressure is 113/69, pulse of 90, respiration is 18, temperature is 98.4 degrees. General: Ms. Eric is a 63-year-old female. She is in bed no distress. Mucosa is pink and moist. Anicteric. Acyanotic. Neck: Supple. Chest: Good air entry bilateral with prolonged expiratory phase of respiration. There was no rhonchi, wheezing. Cardiovascular: Regular rate and rhythm. Abdomen: Soft, nontender. Bowel sounds present. ELECTRONIC WARFARE SPECIALIST: Patient is awake, alert, oriented. We will follow basic commands. LABORATORY DATA: WBC is 9.76, hemoglobin is 9.3, platelet count of 581,000. Chemistry is also reviewed, potassium is 3.2. So far blood cultures have been 48 hours negative. MEDICATIONS: Have all been reviewed. No changes. ASSESSMENT: 1. Acute on chronic hypoxemic respiratory failure improved. 2. Bilateral multifocal pneumonia. Patient is on antimicrobial therapy. 3. Altered mental status on presentation secondary to global encephalopathy. Patient's mentation seems to have improved. 4. History of bipolar mood disorder associated with agitation on admission improved. 5. History of chronic obstructive pulmonary disease. 6. History of alcohol use and abuse in the past. 7. Hypothyroidism. PLAN: In general, I think Ms. Eric is doing well. Mentation has improved and her oxygen demand is down to 3 L. WBC has also normalized. We are going to continue with the current antimicrobial therapy. I will discontinue the Livingston catheter and get physical therapy to start working with Ms. Eric. Ms. Eric is a potential discharge in the next 24 to 48 hours. cc: Josh Ely MD
[2019-12-03] MEDS: TYLENOL PO PRN (17:56)
[2019-12-03] MEDS: MINIPRESS PO SCH (20:48)
[2019-12-03] MEDS: ATIVAN IV PRN (21:01)
[2019-12-04] MEDS: ZOSYN 3.375 GM in NS 50 ML IV SCH ×4 (02:10→21:23)
[2019-12-04] MEDS: PRILOSEC PO SCH (06:36)
[2019-12-04] MEDS: SYNTHROID PO SCH (06:36)
[2019-12-04] MEDS: DUONEB (A & A) INH SCH ×4 (08:01→22:43)
[2019-12-04] MEDS: CRESTOR PO SCH (08:06)
[2019-12-04] MEDS: PROZAC PO SCH (08:06)
[2019-12-04] MEDS: SEROQUEL PO SCH ×2 (08:06→21:22)
[2019-12-04 08:15] LABS: AGAP 10; ALB/GLOB RATIO 1.1; ALBUMIN 3.1 g/dL (3.5-5.0); ALKALINE PHOSPHATASE 84 U/L (32-104); BUN 4 mg/dL (8-22); CALCIUM 8.6 mg/dL (8.8-10.2); CHLORIDE 102 mmol/L (98-107); COSMO 272; CREATININE 0.8 mg/dL (0.5-0.9); ESTIMATED GFR > 60; GLUCOSE 87 mg/dL (70-104); GOT 21 U/L (10-30); GPT 16 U/L (10-36); POTASSIUM 3.6 mmol/L (3.5-5.1); SODIUM 138 mmol/L (136-145); TCO2 26 mmol/L (25-35); TOTAL BILIRUBIN 0.66 mg/dL (0.20-1.00)
--- NOTE | 2019-12-04 12:44 | PROGRESS NOTE ---
DATE: 12/04/2019 SUBJECTIVE: I have seen and examined Ms. Eric today. She was actually sitting at the bedside. She refers to be doing a lot better. She was requesting to know when she could be discharged. Of note, Ms. Eric was actually here about a week ago, spent almost a month being in critical condition ARDS, pneumonia, was sent home and then she comes back with what appeared to have been altered mental status. It stated that she had defecated everywhere in her bed, completely irrational thinking. This morning, she seems to be very rational thinking, very coherent. She refers to be feeling a lot better and she is requesting to know if she can be discharged. I am told the patient sustained a fall early this morning when she tried rushing to the bathroom to have a bowel movement. Apparently, she made a misstep and fell sustaining minimal bruises to her knees. I am told by the nurse that she had accident and defecated everywhere on the floor, said to have been diarrhea. OBJECTIVE: Vital signs: Blood pressure is 128/71, pulse of 84, respirations 20, temperature is 97.9 degrees. General: Ms. Eric is a 64-year-old elderly female. She was in bed no distress. HEENT: Mucosa is pink and moist. Anicteric. Acyanotic. Neck: Supple. There was no JVD. Respiratory: Air entry is bilaterally reduced. There is prolonged expiratory phase of respiration. No crackles. The patient is on 3 L on supplemental oxygen. She is saturating 100%. Cardiovascular: Regular rate and rhythm. No murmurs, no rubs, no gallops. GI: Abdomen soft, nontender. Bowel sounds present. Extremities: No pedal edema. HEAD ESTHETICIAN: Patient is awake, alert, oriented. There is no focal deficit. LABORATORY DATA: No CBC for today. Chemistry looks completely normal. CURRENT MEDICATIONS: Have all been reviewed. ASSESSMENT: 1. Acute on chronic hypoxemic respiratory failure, improved. Patient is down to 3 L of supplemental oxygen. 2. Multifocal pneumonia questionable aspiration pneumonitis. The patient is on antimicrobial coverage. 3. Altered mental status on presentation secondary to global encephalopathy associated with irrational thought process and behavior, questioning psychosis. 4. History of bipolar disorder associated with agitation on admission. We will get [facility] to evaluate her. 5. History of chronic obstructive pulmonary disease. 6. Alcohol use and abuse in the past. 7. Hypothyroidism. The patient is on supplement. 8. Diarrhea. We are going to sample the stool and check for Clostridium Difficile. We will continue with the current antibiotic coverage. We will also consult [facility] to evaluate her today and hopefully start planning for her discharge tomorrow. 9. The patient will be followed up by [facility]. cc: Josh Ely MD
[2019-12-04 13:18] LABS: EOS# 1.12 X1000 (0.0-0.7); HEMATOCRIT 31.2 % (37.0-47.0); HEMOGLOBIN 9.7 g/dL (12.0-16.0); IMM GRAN# 0.02 X1000 (0.0-0.04); IMM GRAN% 0.2 % (0.0-0.5); LYMPH# 2.16 X1000 (1.2-3.4); LYMPH% 21.1 % (20.5-51.1); MCH 30.1 PG (27-31); MCHC 31.1 g/dL (33-37); MCV 96.9 FL (81-99); MONO% 7.8 % (1.7-9.3); MPV 9.3 FL (7.4-10.4); NEUT# 6.02 X1000 (1.4-6.5); NEUT% 58.9 % (42.2-75.2); PLT 581 X1000 (130-400); RBC 3.22 XMIL (4.2-5.4); RDW 16.1 % (11.5-14.5); WBC 10.22 X1000 (4.8-10.8)
[2019-12-04] MEDS: ZYVOX 600 MG/D5W 600 MG/300 ML IVPB IV SCH (13:56)
[2019-12-04] MEDS ORDERED: ATIVAN IV ONE (14:56)
--- NOTE | 2019-12-04 15:33 | PROGRESS NOTE ---
DATE: 12/04/2019 SUBJECTIVE: I spoke extensively this afternoon with Mr. Eric, the of the patient, updated him on the current clinical status of Ms. Eric and also got a little background history. Mr. Eric does not know that Ms. Eric has any psychiatric disorder and he also does not monitor Ms. Eric' medications. He said that when Ms Eric got discharged the last time from the hospital, which is probably just about a week ago prior to the current admission she seemed to have been doing fairly okay. The night prior she went to take a shower and then went to her bed, but then early in the morning when he went to check on her, she could hardly wake up. He tried to stimulate her multiple times but was not able and when finally Ms Eric woke up, she looked weird, startled, wide open eyes, did not know where she was, so he called the patient's sister to get advice and he was advised to bring her to the emergency room. He went to get things together to bring her to the emergency room. When he went back to the patient Ms. Eric had already difficult defecated and peed in the bed and was reaching out for things in the air that were not there. Ms. Eric this morning tells me that she was in a deep sleep and she thinks that she was having nightmares. She said she has PTSD, but never been told of bipolar. Both Ms. Eric and Mr. Eric confirms that the patient has never been seen by any psychiatrists. However, there has been documentation from Dr. Ernst in the chart. It is just that there were no notes. ASSESSMENT/PLAN: Ms. Eric was [place] [address] Hess and had a diagnosis of bipolar disorder, manic phase with psychotic features. Also a personality disorder and social psychosocial stresses. We will be pending [facility] evaluation today. cc: Josh Ely MD
[2019-12-04] MEDS: CULTURELLE PO SCH (21:22)
[2019-12-04] MEDS: MINIPRESS PO SCH (21:22)
[2019-12-05] MEDS: TYLENOL PO PRN ×3 (00:33→08:30)
[2019-12-05] MEDS: ZYVOX 600 MG/D5W 600 MG/300 ML IVPB IV SCH (02:32)
[2019-12-05] MEDS: ZOSYN 3.375 GM in NS 50 ML IV SCH ×2 (02:32→08:21)
[2019-12-05] MEDS: PRILOSEC PO SCH (06:09)
[2019-12-05] MEDS: SYNTHROID PO SCH (06:09)
[2019-12-05] MEDS: PROZAC PO SCH (08:19)
[2019-12-05] MEDS: CULTURELLE PO SCH (08:19)
[2019-12-05] MEDS: SEROQUEL PO SCH (08:19)
[2019-12-05] MEDS: CRESTOR PO SCH (08:19)
[2019-12-05] MEDS: DUONEB (A & A) INH SCH (10:49)
[2019-12-05 11:35] VITALS: BP 134/70
--- NOTE | 2019-12-05 14:34 | DISCHARGE SUMMARY ---
ADMISSION DATE: 12/01/2019 DISCHARGE DATE: 12/05/2019 DISPOSITION: Home. FOLLOWUP: 1. Dr. Mejia. 2. [facility]. 3. The patient also advised to follow up with mental health. CONSULTATIONS DURING THIS ADMISSION: John borges was consulted. INVASIVE PROCEDURES DONE DURING THIS ADMISSION: None. IMAGING STUDIES OF SIGNIFICANCE: 1. A chest x-ray initially did show diffuse interstitial and airspace infiltrates with a background of fibrosis, similar to previous exams but more pronounced than the previous exams. 2. A CT scan of the head showed chronic-appearing changes. No acute intracranial pathology. 3. A repeat chest x-ray did show low lung volumes. ADMISSION DIAGNOSES: 1. Bipolar disorder with acute psychosis. 2. Bilateral pneumonia. 3. Chronic obstructive pulmonary disease. 4. Alcohol use and abuse. 5. Hypothyroidism. DIAGNOSES AT THE TIME OF DISCHARGE: 1. Acute on chronic hypoxemic respiratory failure, improved. Patient is back to 2 to 3 L of supplemental oxygen. 2. Multifocal pneumonia, questionable for aspiration pneumonitis. 3. Altered mental status on presentation secondary to global encephalopathy associated with irrational behavior, questionable psychosis. 4. Bipolar disorder. 5. History of chronic obstructive pulmonary disease. 6. Alcohol use and abuse in the past. 7. Hypothyroidism. 8. Cognitive decline, presumably a combination of Alzheimer's, vascular, and toxin. DISCHARGE MEDICATIONS: 1. Fluoxetine 40 mg p.o. daily. 2. Omeprazole 40 mg p.o. daily. 3. Prazosin 10 mg p.o. at bedtime. 4. Levothyroxine 50 mcg p.o. daily. 5. Trazodone 50 mg p.o. at bedtime. 6. Crestor 20 mg p.o. daily. 7. Tramadol 50 mg p.o. q.6 p.r.n. 8. Augmentin 875 p.o. b.i.d. 9. Culturelle 1 tablet b.i.d. 10. Doxycycline 100 mg p.o. daily. 11. Gabapentin 100 mg p.o. at bedtime. PRESENTING COMPLAINT: Altered mental status. HISTORY OF PRESENTING COMPLAINT: Ms. Eric is a 63-year-old, female who was recently discharged from the hospital after she was treated for ARDS. Was doing fairly okay until she was found altered, very confused, not keeping her oxygen on. The patient was also found to have defecated on her bed and pee at that time. She was brought in to the emergency room. At the time of evaluation, she was found to be completely disoriented and agitated, fighting, not cooperative. She was admitted for altered mental status, possible psychosis on the background of bipolar disorder, and also possible pneumonia/aspiration. Ms. Eric was admitted for further medical care. HOSPITAL COURSE: Ms. Eric was initially admitted to the medical floor, put back on her oxygen, and started on broad-spectrum IV antibiotics for possible pneumonitis. Her psychotropic medications were all withheld. Progressively, Ms. Eric continued to show remarkable improvement. Her mentation completely resolved. Imaging studies including a CT scan did not show any acute abnormality. We suspect that Ms. Eric is on multiple psychotropic medications which could have caused her mentation to have been compromised. She probably might have aspirated and then became hypoxemic which, on its own, also probably added more insult to her sensorium. At any point during the hospital course, she improved remarkably. We did consult [facility] for psychiatric screening. She was deemed not a candidate for inpatient psychiatric evaluation and the recommendations were given to her to follow up as an outpatient with mental health. Ms. Eric has documentation since 2011 as having bipolar occasional rhianna episodes. According to her, she did not know about this. At any point, she has been advised to follow up with mental health. During the hospital course, Ms. Eric was also evaluated by physical therapy up to yesterday and she did pretty well. This morning, Ms. Eric refers to be doing well. Her vitals are stable. Blood pressure is 134/74, pulse of 87, respirations are 18, temperature is 98.3 degrees. She denies having any respiratory symptoms. She is no more agitated. She is completely stable and we think she is okay for discharge to follow up with her primary care as well as with her mental health team. Other discharge instructions discussed with her. She voiced understanding. Time spent for discharge is 35 minutes. Specifically, we did address all the psychotropic medications that Ms. Eric is on, which I think could have also compounded her sensorium issue on admission. We have, therefore, made changes to them. The gabapentin has been reduced to a lower dose. Seroquel has been discontinued as well as hydroxyzine. Her narcotic has been discontinued and she will continue only on trazodone and follow up with mental health. cc: Josh Ely MD
== END 2019-12-05 12:08 | disposition home health service (06) | DRG 177 ==
LOC: SUPCPDRO → ED 06:53 → SUATTDRO 19:14 → 2N 19:14 → 3N 12-03 16:16
PROVIDERS: ATTEND Internal Medicine